=== PATIENT | female | born 1980 | race Caucasian/White ===

== ENCOUNTER 2020-02-20 13:50 | Emergency (ER) | payer OTHER ==
[~2020-02-20] VITALS: Ht 167.6 cm; Wt 108.9 kg
--- OUTSIDE RECORDS SUMMARY | ~2020-02-20 | XMS | Encounter Summary ---
Demographics + + + | Address | [address] | | | [place] [address] | + + + | Home Phone | | + + + | Preferred Language | Unknown | + + + | Marital Status | Unknown | + + + | Scientology Affiliation | Unknown | + + + | Race | White | + + + | Ethnic Group | Unknown | + + + Author + + + | Author | [facility] | | | and [place] | + + + | Organization | [facility] | | | and [place] | + + + | Address | Unknown | + + + | Phone | Unavailable | + + + Support + + +---------+ + | Name | Relationship | Address | Phone | + + +---------+ + | Known Un | ECON | Unknown | | + + +---------+ + | Estefanimariia Sims | ECON | Unknown | | + + +---------+ + Care Team Providers + +------+ + | Care Instructional Assistant Name | Role | Phone | + +------+ + PCP | Unavailable | + +------+ + Encounter Details +--------+ + + + + | Date | Type | Department | Care Team | Description | +--------+ + + + + | 11/09/ | Hospital | [facility] | Marleni Garcia, | | | 2010 | Encounter | HOSPITAL EMERGENCY | 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
--- OUTSIDE RECORDS SUMMARY | ~2020-02-20 | XMS | Encounter Summary ---
Demographics + + + | Address | [address] | | | [place] [address] | + + + | Home Phone | | + + + | Preferred Language | Unknown | + + + | Marital Status | Unknown | + + + | Taoist Affiliation | Unknown | + + + | Race | White | + + + | Ethnic Group | Unknown | + + + Author + + + | Author | [facility] | | | and [place] | + + + | Organization | [facility] | | | and [...] Team Providers + +------+ + | Care Gas Station Supervisor Name | Role | Phone | + +------+ + PCP | Unavailable | + +------+ + Encounter Details +--------+ + + + + | Date | Type | Department | Care Team | Description | +--------+ + + + + | 12/28/ | Hospital | [facility] | Quincy Landis | | | 2009 | Encounter | HOSPITAL EMERGENCY | [address] | | | | | CENTER [address] | [facility] | | | | | DR [place] [place] | [place] [address] | | | | | [address] | [phone] | | | | | [phone] | | | +--------+ + + + [...]
--- OUTSIDE RECORDS SUMMARY | ~2020-02-20 | XMS | Encounter Summary ---
Demographics + + + | Address | [address] | | | [place] [address] | + + + | Home Phone | | + + + | Preferred Language | Unknown | + + + | Marital Status | Unknown | + + + | Christianity Affiliation | Unknown | + + + | Race | White | + + + | Ethnic Group | Unknown | + + + Author + + + | Author | [facility] | | | and [place] | + + + | Organization | [facility] | | | [...] Team Providers + +------+ + | Care Shells Inspector Name | Role | Phone | + +------+ + PCP | Unavailable | + +------+ + Encounter Details +--------+ + + + + | Date | Type | Department | Care Team | Description | +--------+ + + + + | 09/04/ | Hospital | [facility] | Conversion | | | 2011 | Encounter | HOSPITAL EMERGENCY | Transaction, | | | | | CENTER [address] | Provider Unknown | | | | | [address] [place], [place] | | | | | | [address] | (Fax) | | | | | [phone] | | | +--------+ + + + [...]
--- OUTSIDE RECORDS SUMMARY | ~2020-02-20 | XMS | Encounter Summary ---
Demographics + + + | Address | [address] | | | [place] [address] | + + + | Home Phone | | + + + | Preferred Language | Unknown | + + + | Marital Status | Unknown | + + + | Jew Affiliation | Unknown | + + + [...] Team Providers + +------+ + | Care Fur Puller Name | Role | Phone | + +------+ + PCP | Unavailable | + +------+ + Encounter Details +--------+ + + + + | Date | Type | Department | Care Team | Description | +--------+ + + + + | 08/31/ | Hospital | [facility] | | | | 2009 | Encounter | HOSPITAL GENERIC OP | | | | | | CONVERSION | | | | | | DEPARTMENT [address] | | | | | | [address] | | | | | | [place] | | | | | | [address] | | | | | | [phone] | | | +--------+ + + + [...]
--- OUTSIDE RECORDS SUMMARY | ~2020-02-20 | XMS | Encounter Summary ---
Demographics + + + | Address | [address] | | | [place] [address] | + + + | Home Phone | | + + + | Preferred Language | Unknown | + + + | Marital Status | Unknown | + + + | Alevism Affiliation | Unknown | + + + | Race | White | + + + | Ethnic Group | Unknown | + + + Author + + + | Author | [facility] | | | and [place] | + + + | Organization | [facility] | | | and [...] Team Providers + +------+ + | Care Single End Sewer Name | Role | Phone | + +------+ + PCP | Unavailable | + +------+ + Encounter Details +--------+ + + + + | Date | Type | Department | Care Team | Description | +--------+ + + + + | 01/31/ | Hospital | [facility] | Timmy Garcia | | | 2008 | Encounter | HOSPITAL EMERGENC[place] | [place] [address] [facility] | | | | | CENTER [address] | [facility] [address] | | | | | [address] [place] | [place], [place] | | | | | [address] | [address] | | | | | [phone] | | | +--------+ + + + [...]
--- OUTSIDE RECORDS SUMMARY | ~2020-02-20 | XMS | Encounter Summary ---
Demographics + + + | Address | [address] | | | [place] [address] | + + + | Home Phone | | + + + | Preferred Language | Unknown | + + + | Marital Status | Unknown | + + + | Protestant Affiliation | Unknown | + + + | Race | White | + + + | Ethnic Group | Unknown | + + + Author + + + | Author | [facility] | | | and [place] | + + + | Organization | [facility] | | | and [place] | + + + | Address | Unknown | + + + | Phone | Unavailable | + + + Support + + +---------+ + | Name | Relationship | Address | Phone | + + +---------+ + | Known Un | ECON | Unknown | | + + +---------+ + | Estefani Sims | ECON | Unknown | | + + +---------+ + Care Team Providers + +------+ + | Care Poultry Farmer Meat Name | Role | Phone | + +------+ + PCP | Unavailable | + +------+ + Encounter Details +--------+ + + + + | Date | Type | Department | Care Team | Description | +--------+ + + + + | 03/09/ | Hospital | [facility] | Guy Kaba | | | 2010 | Encounter | HOSPITAL EMERGENCY | MD [address] | | | | | CENTER [address] | [facility] | | | | | DR [address] [place] | [place] [address] | | | | | [address] | [phone] | | | | | [phone] | | | +--------+ + + + [...]
--- OUTSIDE RECORDS SUMMARY | ~2020-02-20 | XMS | Clinical Summary ---
Demographics + + + | Address | [address] | | | [place] [address] | + + + | Home Phone | | + + + | Preferred Language | Unknown | + + + | Marital Status | Unknown | + + + | Catholic Affiliation | Unknown | + + + | Race | White | + + + | Ethnic Group | Unknown | + + + Author + + + | Author | [facility] | | | and [place] | + + + | Organization | [facility] | | | [...] Team Providers + +------+ + | Care Legal Coordinator Name | Role | Phone | + +------+ + | No, Unknownpcp | PCP | | + +------+ + Allergies Not on File Medications Not on file Active Problems Not on file Immunizations + + + + | Name | Administration Dates | Next Due | + + + + | TDAP, (ADOL/ADULT) | 10/03/2009 | | + + + + Social History + [...] on file | | + + + Last Filed Vital Signs Not on file Plan of Treatment + + + + + | Health Maintenance | Due Date | Last | Comments | | | | Done | | + + + + + | Cervical Cancer | | | | | Screening (Pap) | 3 | | | + + + + + | Vaccine: | | 10/04/19 | | | Dtap/Tdap/Td (2 - | 0 | 10 | | | Td) | | | | + + + + + | Vaccine: Influenza | | | | | (#1) | 0 | | | + + + + + Results Not on filefrom Last 3 Months Insurance + +--------+ +--------+ +---------+--------+ | Payer | Benefi | Subscriber | Effect | Phone | Address | Type | | | t Plan | ID | payam | | | | | | / | | Dates | | | | | | Group | | | | | | + +--------+ +--------+ +---------+--------+ | [employer] | [employer] | [id number] | | [phone] | | Medica | | MEDICAID HMO | HEALTH | | [id number] | 1 | | id | | | MDCD | | esent | | | | | | [place] | | | | | | + +--------+ +--------+ +---------+--------+ + +--------+ +--------+ + + | Guarantor Name | Accoun | Relation to | Date | Phone | Billing Address | | | t Type | Patient | of | | | | | | | | | | + +--------+ +--------+ + + | Levi-Julián Guillen | Person | Self | [birth year] | [address] | | juliet Ibrahim | vinicius/Shashank | | 1980 | [phone] | [address] [place] | | | porfirio | | | 7 (Home) | [address] | + +--------+ +--------+ + + Advance Directives + + + + + | Type | Date Recorded | Patient | Explanation | | | | Security Management Specialist | | + + + + + | Power of | | | | | Mold Finisher | | | | + + + + + | Advance | | | | | Directive | | | | + + + + +"
--- OUTSIDE RECORDS SUMMARY | ~2020-02-20 | XMS | Encounter Summary ---
Demographics + + + | Address | [address] | | | [place] [address] | + + + | Home Phone | | + + + | Preferred Language | Unknown | + + + | Marital Status | Unknown | + + + | Adventism Affiliation | Unknown | + + + | Race | White | + + + | Ethnic Group | Unknown | + + + Author + + + | Author | [facility] | | | and [place] | + + + | Organization | [facility] | | | and [...] Team Providers + +------+ + | Care Warehouse Representative Name | Role | Phone | + +------+ + PCP | Unavailable | + +------+ + Encounter Details +--------+ + + + + | Date | Type | Department | Care Team | Description | +--------+ + + + + | 10/17/ | Hospital | [facility] | Quincy Landis | | | 2010 | Encounter | HOSPITAL EMERGENCY | [address] | | | | | CENTER [address] | [facility] | | | | | DR [address] | [place] [address] | | | | | [address] | [phone] | | | | | [phone] | | | +--------+ + + + [...]
--- OUTSIDE RECORDS SUMMARY | ~2020-02-20 | XMS | Encounter Summary ---
Demographics + + + | Address | [address] | | | [place] [address] | + + + | Home Phone | | + + + | Preferred Language | Unknown | + + + | Marital Status | Unknown | + + + | Denominational Affiliation | Unknown | + + + | Race | White | + + + | Ethnic Group | Unknown | + + + Author + + + | Author | [facility] | | | and [place] | + + + | Organization | [facility] | | | and [...] Team Providers + +------+ + | Care Armature Winder Name | Role | Phone | + +------+ + PCP | Unavailable | + +------+ + Encounter Details +--------+ + + + + | Date | Type | Department | Care Team | Description | +--------+ + + + + | 11/11/ | Hospital | [facility] | Conversion | | | 2011 | Encounter | HOSPITAL EMERGENCY | Transaction, | | | | | CENTER [address] | Provider Unknown | | | | | [address] [place], [place] | | | | | | [address] | (Fax) | | | | | [phone] | | | +--------+ + + + [...]
--- OUTSIDE RECORDS SUMMARY | ~2020-02-20 | XMS | Encounter Summary ---
Demographics + + + | Address | [address] | | | [place] [address] | + + + | Home Phone | | + + + | Preferred Language | Unknown | + + + | Marital Status | Unknown | + + + | Roman Catholic Affiliation | Unknown | + + + | Race | White | + + + | Ethnic Group | Unknown | + + + Author + + + | Author | [facility] | | | and [place] | + + + | Organization | [facility] | | | [...] Team Providers + +------+ + | Care Chemical Process Operator Name | Role | Phone | + +------+ + PCP | Unavailable | + +------+ + Encounter Details +--------+ + + + + | Date | Type | Department | Care Team | Description | +--------+ + + + + | 06/14/ | Hospital | [facility] | Gregory Figueroa | | | 2008 | Encounter | HOSPITAL EMERGENCY | [address] | | | | | CENTER [address] | [address] | | | | | DR [place], [place] | [place] [address] | | | | | [address] | [phone] | | | | | [phone] | | | +--------+ + + + [...]
--- OUTSIDE RECORDS SUMMARY | ~2020-02-20 | XMS | Encounter Summary ---
Demographics + + + | Address | [address] | | | [place] [address] | + + + | Home Phone | | + + + | Preferred Language | Unknown | + + + | Marital Status | Unknown | + + + | Anglican Affiliation | Unknown | + + + | Race | White | + + + | Ethnic Group | Unknown | + + + Author + + + | Author | [facility] | | | and [place] | + + + | Organization | [facility] | | [...] Team Providers + +------+ + | Care Business Office Technology Instructor Name | Role | Phone | + +------+ + PCP | Unavailable | + +------+ + Encounter Details +--------+ + + + + | Date | Type | Department | Care Team | Description | +--------+ + + + + | 08/30/ | Hospital | [facility] | | | | 2009 | Encounter | HOSPITAL GENERIC OP | | | | | | CONVERSION | | | | | | DEPARTMENT [address] | | | | | | [address] | | | | | | [place] | | | | | | [address] | | | | | | [phone] | | | +--------+ + + + [...]
--- OUTSIDE RECORDS SUMMARY | ~2020-02-20 | XMS | Encounter Summary ---
Demographics + + + | Address | [address] | | | [place] [address] | + + + | Home Phone | | + + + | Preferred Language | Unknown | + + + | Marital Status | Unknown | + + + | Scientology Affiliation | Unknown | + + + | Race | White | + + + | Ethnic Group | Unknown | + + + Author + + + | Author | [facility] | | | and [place] | + + + | Organization | [facility] | | | [...] Team Providers + +------+ + | Care Marketing Writer Name | Role | Phone | + +------+ + PCP | Unavailable | + +------+ + Encounter Details +--------+ + + + + | Date | Type | Department | Care Team | Description | +--------+ + + + + | 10/04/ | Hospital | [facility] | Yovany Sher | | | 2008 | Encounter | HOSPITAL LABORATORY | MD [address] | | | | | [address] | [address] | | | | | [place], [place] | [place] [address] | | | | | [address] | [phone] | | | | | [phone] | | | +--------+ + + + [...]
--- OUTSIDE RECORDS SUMMARY | ~2020-02-20 | XMS | Encounter Summary ---
Demographics + + + | Address | [address] | | | [place] [address] | + + + | Home Phone | | + + + | Preferred Language | Unknown | + + + | Marital Status | Unknown | + + + | Pentecostal Affiliation | Unknown | + + + | Race | White | + + + | Ethnic Group | Unknown | + + + Author + + + | Author | [facility] | | | and [place] | + + + | Organization | [facility] | | | [...] Team Providers + +------+ + | Care Medical Detail Representative Name | Role | Phone | + +------+ + PCP | Unavailable | + +------+ + Encounter Details +--------+ + + + + | Date | Type | Department | Care Team | Description | +--------+ + + + + | 08/23/ | Hospital | [facility] | Timmy Garcia | | | 2008 | Encounter | HOSPITAL EMERG[place] [address] [facility] | | | | | CENTER [address] | [facility] [address] | | | | | [address] [place] | [place], [place] | | | | | [address] | [address] | | | | | [phone] | | | +--------+ + + + [...]
--- OUTSIDE RECORDS SUMMARY | ~2020-02-20 | XMS | Encounter Summary ---
Demographics + + + | Address | [address] | | | [place] [address] | + + + | Home Phone | | + + + | Preferred Language | Unknown | + + + | Marital Status | Unknown | + + + | Moravian Affiliation | Unknown | + + + | Race | White | + + + | Ethnic Group | Unknown | + + + Author + + + | Author | [facility] | | | and [place] | + + + | Organization | [facility] | | | [...] Team Providers + +------+ + | Care Oncology Physician Assistant Name | Role | Phone | + +------+ + PCP | Unavailable | + +------+ + Encounter Details +--------+ + + + + | Date | Type | Department | Care Team | Description | +--------+ + + + + | 10/10/ | Hospital | [facility] | Yovany Sher | | | 2008 | Encounter | HOSPITAL MED SURG | [address] | | | | | [address] [place] | [address] | | | | | [place], [place] | [place] [address] | | | | | [address] | [phone] | | | | | [phone] | | | +--------+ + + + [...]
--- OUTSIDE RECORDS SUMMARY | ~2020-02-20 | XMS | Encounter Summary ---
Demographics + + + | Address | [address] | | | [place] [address] | + + + | Home Phone | | + + + | Preferred Language | Unknown | + + + | Marital Status | Unknown | + + + | Anglican Affiliation | Unknown | + + + | Race | White | + + + | Ethnic Group | Unknown | + + + Author + + + | Author | [facility] | | | and [place] | + + + | Organization | [facility] | | | [...] Team Providers + +------+ + | Care Reproductive Endocrinologist Name | Role | Phone | + +------+ + PCP | Unavailable | + +------+ + Encounter Details +--------+ + + + + | Date | Type | Department | Care Team | Description | +--------+ + + + + | 10/03/ | Hospital | [facility] | Chico Zimmer | | | 2009 | Encounter | HOSPITAL REGIONAL | [address] | | | | | [facility] [address] [place], | | | | | [address] [facility], | [place] [address] | | | | | [place] [address] | [phone] | | | | | [phone] | | | +--------+ + + + [...]
--- OUTSIDE RECORDS SUMMARY | ~2020-02-20 | XMS | Encounter Summary ---
Demographics + + + | Address | [address] | | | [place] [address] | + + + | Home Phone | | + + + | Preferred Language | Unknown | + + + | Marital Status | Unknown | + + + | Islam Affiliation | Unknown | + + + | Race | White | + + + | Ethnic Group | Unknown | + + + Author + + + | Author | [facility] | | | and [place] | + + + | Organization | [facility] | | | and [...] Team Providers + +------+ + | Care Construction Manager Name | Role | Phone | + +------+ + PCP | Unavailable | + +------+ + Encounter Details +--------+ + + + + | Date | Type | Department | Care Team | Description | +--------+ + + + + | 05/09/ | Hospital | [facility] | Guy Kaba | | | 2008 | Encounter | HOSPITAL EMERGENCY | [address] | | | | | C[address] | [facility] | | | | | DR [address] [place] | [place] [address] | | | | | [address] | [phone] | | | | | [phone] | | | +--------+ + + + [...]
--- OUTSIDE RECORDS SUMMARY | ~2020-02-20 | XMS | Encounter Summary ---
Demographics + + + | Address | [address] | | | [place] [address] | + + + | Home Phone | | + + + | Preferred Language | Unknown | + + + | Marital Status | Unknown | + + + | Uatsdin Affiliation | Unknown | + + + | Race | White | + + + | Ethnic Group | Unknown | + + + Author + + + | Author | [facility] | | | and [place] | + + + | Organization | [facility] | | | and [...] Team Providers + +------+ + | Care Account Maintenance Representative Name | Role | Phone | + +------+ + PCP | Unavailable | + +------+ + Encounter Details +--------+ + + + + | Date | Type | Department | Care Team | Description | +--------+ + + + + | 10/12/ | Hospital | [facility] | Melita Chris | | | 2008 | Encounter | HOSPITAL XRAY 900 | MD [address] | | | | | [place] | [place] | | | | | [place] | [address] | | | | | [address] | [phone] | | | | | [phone] | | | +--------+ + + + [...]
--- OUTSIDE RECORDS SUMMARY | ~2020-02-20 | XMS | Encounter Summary ---
Demographics + + + | Address | [address] | | | [place] [address] | + + + | Home Phone | | + + + | Preferred Language | Unknown | + + + | Marital Status | Unknown | + + + | Islam Affiliation | Unknown | + + + | Race | White | + + + | Ethnic Group | Unknown | + + + Author + + + | Author | [facility] | | | and [place] | + + + | Organization | [facility] | | | and [place] | + + + | Address | Unknown | + + + | Phone | Unavailable | + + + Support + + +---------+ + | Name | Relationship | Address | Phone | + + +---------+ + | Known Un | ECON | Unknown | | + + +---------+ + | Estefanimariia Sism | ECON | Unknown | | + + +---------+ + Care Team Providers + +------+ + | Care General Intern Name | Role | Phone | + +------+ + PCP | Unavailable | + +------+ + Encounter Details +--------+ + + + + | Date | Type | Department | Care Team | Description | +--------+ + + + + | 07/03/ | Hospital | [facility] | Yovany Sher | | | 2009 | Encounter | HOSPITAL LABORATORY | [address] | | | | | [address] [place] | [address] | | | | | [place], [place] | [place] [address] | | | | | [address] | [phone] | | | | | [phone] | | | +--------+ + + + [...]
--- OUTSIDE RECORDS SUMMARY | ~2020-02-20 | XMS | Encounter Summary ---
Demographics + + + | Address | [address] | | | [place] [address] | + + + | Home Phone | | + + + | Preferred Language | Unknown | + + + | Marital Status | Unknown | + + + | Adventist Affiliation | Unknown | + + + | Race | White | + + + | Ethnic Group | Unknown | + + + Author + + + | Author | [facility] | | | and [place] | + + + | Organization | [facility] | | | [...] Team Providers + +------+ + | Care Surveying Technician Name | Role | Phone | + +------+ + PCP | Unavailable | + +------+ + Encounter Details +--------+ + + + + | Date | Type | Department | Care Team | Description | +--------+ + + + + | 04/16/ | Hospital | [facility] | Gregory Figueroa | | | 2009 | Encounter | HOSPITAL EMERGENCY | [address] | | | | | C[address] | [address] | | | | | DR [place], [place] | [place] [address] | | | | | [address] | [phone] | | | | | [phone] | | | +--------+ + + + [...]
--- OUTSIDE RECORDS SUMMARY | ~2020-02-20 | XMS | Encounter Summary ---
Demographics + + + | Address | [address] | | | [place] [address] | + + + | Home Phone | | + + + | Preferred Language | Unknown | + + + | Marital Status | Unknown | + + + | Rastafari Affiliation | Unknown | + + + | Race | White | + + + | Ethnic Group | Unknown | + + + Author + + + | Author | [facility] | | | and [place] | + + + | Organization | [facility] | | | [...] Team Providers + +------+ + | Care Manager Of Training Name | Role | Phone | + +------+ + PCP | Unavailable | + +------+ + Encounter Details +--------+ + + + + | Date | Type | Department | Care Team | Description | +--------+ + + + + | 08/09/ | Hospital | [facility] | Quincy Landis | | | 2009 | Encounter | HOSPITAL EMERGENCY | [address] | | | | | C[address] | [facility] | | | | | DR [address] [place] | [place] [address] | | | | | [address] | [phone] | | | | | [phone] | | | +--------+ + + + [...]
--- OUTSIDE RECORDS SUMMARY | ~2020-02-20 | XMS | Encounter Summary ---
Demographics + + + | Address | [address] | | | [place] [address] | + + + | Home Phone | | + + + | Preferred Language | Unknown | + + + | Marital Status | Unknown | + + + | Samaritan Affiliation | Unknown | + + + | Race | White | + + + | Ethnic Group | Unknown | + + + Author + + + | Author | [facility] | | | and [place] | + + + | Organization | [facility] | | [...] Team Providers + +------+ + | Care Railroad Maintenance Clerk Name | Role | Phone | + +------+ + PCP | Unavailable | + +------+ + Encounter Details +--------+ + + + + | Date | Type | Department | Care Team | Description | +--------+ + + + + | 02/20/ | Hospital | [facility] | Christiano Coffey FNP | | | 2009 | Encounter | H[facility]PITAL XRAY 900 | [address] | | | | | [address] | [address], | | | | | [place], [place] | [place] [address] | | | | | [address] | [phone] | | | | | [phone] | | | +--------+ + + + [...]
--- OUTSIDE RECORDS SUMMARY | ~2020-02-20 | XMS | Encounter Summary ---
Demographics + + + | Address | [address] | | | [place] [address] | + + + | Home Phone | | + + + | Preferred Language | Unknown | + + + | Marital Status | Unknown | + + + | Worship Affiliation | Unknown | + + + | Race | White | + + + | Ethnic Group | Unknown | + + + Author + + + | Author | [facility] | | | and [place] | + + + | Organization | [facility] | | [...] Team Providers + +------+ + | Care Cylinder Press Feeder Name | Role | Phone | + +------+ + PCP | Unavailable | + +------+ + Encounter Details +--------+ + + + + | Date | Type | Department | Care Team | Description | +--------+ + + + + | 12/23/ | Hospital | [facility] | Gregory Figueroa | | | 2008 | Encounter | HOSPITAL EMERGENCY | [address] | | | | | [address] | [address] | | | | | [address] [place], [place] | [place] [address] | | | | | [address] | [phone] | | | | | [phone] | | | +--------+ + + + [...]
--- OUTSIDE RECORDS SUMMARY | ~2020-02-20 | XMS | Encounter Summary ---
Demographics + + + | Address | [address] | | | [place] [address] | + + + | Home Phone | | + + + | Preferred Language | Unknown | + + + | Marital Status | Unknown | + + + | Gnosticist Affiliation | Unknown | + + + [...] Team Providers + +------+ + | Care Elementary Substitute Teacher Name | Role | Phone | + +------+ + PCP | Unavailable | + +------+ + Encounter Details +--------+ + + + + | Date | Type | Department | Care Team | Description | +--------+ + + + + | 06/18/ | Hospital | [facility] | Timmy Garcia | | | 2008 | Encounter | HOSPITAL EMERGENC[place] | [place] [address] [facility] | | | | | [address] | [facility] [address] | | | | | [address] [place] | [place], [place] | | | | | [address] | [address] | | | | | [phone] | | | +--------+ + + + [...]
--- OUTSIDE RECORDS SUMMARY | ~2020-02-20 | XMS | Encounter Summary ---
Demographics + + + | Address | [address] | | | [place] [address] | + + + | Home Phone | | + + + | Preferred Language | Unknown | + + + | Marital Status | Unknown | + + + | Shinto Affiliation | Unknown | + + + [...] Team Providers + +------+ + | Care Drafter Geological Name | Role | Phone | + +------+ + PCP | Unavailable | + +------+ + Encounter Details +--------+ + + + + | Date | Type | Department | Care Team | Description | +--------+ + + + + | 12/06/ | Hospital | [facility] | Mounika Bai | | | 2009 | Encounter | HOSPITAL XRAY [address] | [address] | | | | | [address] | [facility] | | | | | [place] | [place] [address] | | | | | [address] | [phone] | | | | | [phone] | | | +--------+ + + + [...]
[~2020-02-20 13:50] MED LIST: GABAPENTIN300 MG PO; MOTRIN IB200 MG PO; NEXIUM20 MG PO; PERCOCET 5-3251 EACH PO; ZOLOFT100 MG PO
[2020-02-20] MEDS ORDERED: ALBUTEROL2.5 MG/3 M INH (14:07)
[2020-02-20] MEDS ORDERED: PREDNISONE20 MG PO (15:01)
== END 2020-02-20 15:21 | disposition home or self-care (01) ==
LOC: ED 13:50
DX: J45.901 Unspecified asthma with (acute) exacerbation (principal); Z87.891 Personal history of nicotine dependence; Z88.2 Allergy status to sulfonamides; Z88.1 Allergy status to other antibiotic agents; Z79.899 Other long term (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
CPT/HCPCS: 71045; 80053; 83735; 84484; 85025; 99285-25; J7512

== ENCOUNTER 2020-05-14 14:24 | Emergency (ER) | payer OTHER ==
[~2020-05-14] VITALS: Ht 167.6 cm; Wt 108.9 kg
[~2020-05-14 14:24] MED LIST changes: +ALBUTEROL2.5 MG/3 M INH; +PREDNISONE20 MG PO
[2020-05-14] MEDS ORDERED: TRAMADOL HCL50 MG PO (14:55)
[2020-05-14] MEDS ORDERED: CEFDINIR300 MG PO (14:56)
[2020-05-15] MEDS ORDERED: CLARITHROMYCIN500 MG PO (15:02)
[2020-05-15] MEDS ORDERED: ADVAIR HFA 45-212 GM (15:04)
[2020-05-15] MEDS ORDERED: NORCO 7.5-3251 EACH PO (17:50)
== END 2020-05-14 16:50 | disposition home or self-care (01) ==
LOC: ED 14:24
DX: M54.5 Low back pain (principal); Z87.891 Personal history of nicotine dependence; Z88.1 Allergy status to other antibiotic agents; Z88.2 Allergy status to sulfonamides; Z88.0 Allergy status to penicillin; Z79.899 Other long term (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; Z79.891 Long term (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 of opiate analgesic
CPT/HCPCS: 74176; 81001; 84703; 99284-25

== ENCOUNTER 2020-05-15 14:42 | Emergency (ER) | payer OTHER ==
[~2020-05-15] VITALS: Ht 167.6 cm; Wt 108.9 kg
[~2020-05-15 14:42] MED LIST changes: +CEFDINIR300 MG PO; +TRAMADOL HCL50 MG PO
[2020-05-15] MEDS ORDERED: CLARITHROMYCIN500 MG PO (15:02)
[2020-05-15] MEDS ORDERED: ADVAIR HFA 45-212 GM (15:04)
--- OUTSIDE RECORDS SUMMARY | 2020-05-15 15:08 | XMS ---
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 Marcel has no Care Guidelines for this patient. Jessica VISIT COUNT (12 MO.) [address] [facility] TOTAL 3 NOTE: Visits indicate total known visits. ED/C VISIT TRACKING (12 MO.) 05/15/2020 14:43 [facility] [place] TYPE: Emergency COMPLAINT: - FLANK PAIN 05/14/2020 14:25 [facility] [place] TYPE: Emergency COMPLAINT: - URINE PROBLEM 02/20/2020 13:50 [facility] [place] TYPE: Emergency COMPLAINT: - SOB DIAGNOSES: - Personal history of nicotine dependence - Shortness of breath - Other retirement (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 - Allergy status to sulfonamides - Allergy status to other antibiotic agents - Unspecified asthma with (acute) exacerbation INPATIENT VISIT TRACKING (12 MO.) No inpatient visits to display in this time frame [email or web address]
[2020-05-15] MEDS ORDERED: NORCO 7.5-3251 EACH PO (17:50)
== END 2020-05-15 18:00 | disposition home or self-care (01) ==
LOC: ED 14:42
DX: N39.0 Urinary tract infection, site not specified (principal); Z87.891 Personal history of nicotine dependence; Z88.1 Allergy status to other antibiotic agents; Z88.2 Allergy status to sulfonamides; Z88.0 Allergy status to penicillin; Z79.891 Long term (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 of opiate analgesic; Z79.899 Other long term (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
CPT/HCPCS: 80053; 85025; 96374; 96375; 96376; 99283-25; J1170; J1335; J2405; J7030

== ENCOUNTER 2020-11-01 08:00 | Day surgery (SDC) | payer OTHER ==
[~2020-11-01] VITALS: Ht 167.6 cm; Wt 102.3 kg
--- NOTE | ~2020-11-01 | OR ---
[facility] [address] [place], [place] [address] Draft DATE OF OPERATION: 11/01/2020 SURGEON: Maximo Winston MD PREOPERATIVE DIAGNOSES: Chronic pansinusitis with polyposis and scarring, previous surgery which was unsuccessful. POSTOPERATIVE DIAGNOSES: Chronic pansinusitis with polyposis and scarring, previous surgery which was unsuccessful. PROCEDURE: 1. Bilateral endoscopic frontal ethmoidectomy, 94711. 2. Bilateral maxillary antrostomies with removal of tissue, 07872-57. 3. Bilateral endoscopic sphenoidotomies, 83435-35. 4. Left submucous resection of inferior turbinate, 71272. INDICATIONS: This 39-year-old female had sinus surgery last year elsewhere and her benefit was very limited as the patient had all of the same symptoms come back, congestion, headache, recurring acute infection when the CT scan was performed, which showed basically picture of pansinusitis almost white-out. Endoscopic exam was not possible because of intense scarring, could not get through all of the scar bands. Because of medical failure and even a previous surgical failure to treat her disease, the above revision was indicated. Nasal obstruction. PROCEDURE IN DETAIL: The patient was placed in the supine position, had an orotracheal intubation, was placed under general anesthesia. Photographs were obtained preop, intraop and postoperatively. Beginning on the patient's right side, the lateral nasal wall, uncinate process were injected with a couple mL of 1% lidocaine 1:100,000 epinephrine. After cutting the scar bands with a thru cut ethmoid punch, the microdebrider was used to remove polyps to try and help clarify this situation. There was a part of the stalk of the middle turbinate, which had been previously penetrated. Once that anatomy was figured out, then the dissection stayed lateral to that turbinate. There was dense scarring, which completely closed off, the maxillary sinus and the uncinate process either unremoved or only partially removed. This was removed with backbiting forceps, microdebrider and a thru cut ethmoid punch. Once the maxillary sinus was visualized, then polyps were removed with the microdebrider with a curved blade, backbiting forceps with a long upbiting PATIENT NAME: FROILAN PAEZ OPERATIVE REPORT DATE OF : 84 REPORT #: [id number] PHYSICIAN: MAXIMO WINSTON MD PCP: DONNIE CARDENAS PA-C REPORT IS CONFIDENTIAL AND NOT TO BE RELEASED WITHOUT AUTHORIZATION [facility] [address] [place], [place] [address] Draft forceps. The 70-degree scope used with a frontal sinus sagittally closing forceps and removed all of the polypoid tissue out of that maxillary sinus. Complete ethmoidectomy was done. There were lots of ethmoid scarred intersinus septations, these were everywhere, both posterior and anterior, and they were removed as flush as possible, 1st going back to the sphenoid sinus area. Sphenoid sinus was scarred off, it was re-opened with the thru cut ethmoid punch and the Kerrison forceps. Purulence was noted in the sphenoid sinus, that was a very large sinus with an accessory sinus, and dissection was not possible down in there, but opening up the ostium just as wide as possible both with Kerrison forceps, cutting down which also as expected opened up part of the one of the branch of the sphenoid ethmoid arteries. This was cauterized from making the ostium as big as possible. Then it was rinsed out with 20 mL of saline, gently irrigating that, and suctioning it out. Switching to a 70-degree scope, then the dissection went along the base of skull up into the frontal recess. The frontal sinus was hard to visualize, lots of polyps and ethmoid architecture still remained. The patient had a very narrow approach as well, so between blood on the lens and suctioning out, progress was slow. Finally, the frontal sinus was opened. Frontal sinus instruments and suction could be well placed up into it. It was very edematous and care was taken not to strip the mucosa out of the opening of that frontal sinus. NasoPore with mupirocin ointment was placed on that side and the same thing was done on the left side, injecting a couple of mL only of lidocaine into the scarred area in the lateral wall. The uncinate process was almost entirely present on the left side, scarred down. It was opened up again with backbiting forceps. The uncinate process entirely removed following up into the frontal recess to try and remove all of the little pieces. Again, polyps were removed out of the maxillary sinus. Pus was also present in the maxillary sinus. It was rinsed out after opening up thoroughly, taking down as much of the wall posteriorly and superiorly and inferiorly as possible down to the inferior turbinates. Still with the patient's nasal airway so narrow, even with a straight septum, the turbinate was reduced on that side to try and give her better airway. This was done with a stab incision anteriorly lifting up the mucoperiosteum and then fracturing and taking out the stalk of the inferior turbinate, which gave her more space, lateralizing that inferior turbinate. Complete ethmoidectomy was then done. Transostial sphenoidotomy was performed. Scar tissue removed again using Kerrison forceps, cutting down into the bone and opening up as large as possible that sphenoid sinus. No pus was present in that one and it was probably only a 10th of the size of the right sphenoid sinus. The 70-degree scope was then used to dissect out the base of skull opening up the frontal sinus on that side. Again, lots of scar, lots of ethmoid architecture and polyps carefully removed. The frontal sinus was opened a little better on that side, could be visualized better than the right side. Estimated blood loss from procedure was about 300 mL. There were no complications. NasoPore was placed in there to try and help prevention of recurrence of those scar bands. The patient went to Recovery in good condition. PATIENT NAME: RFOILAN PAEZ OPERATIVE REPORT DATE OF : 84 REPORT #: [id number] PHYSICIAN: MAXIMO WINSTON MD PCP: DONNIE CARDENAS PA-C REPORT IS CONFIDENTIAL AND NOT TO BE RELEASED WITHOUT AUTHORIZATION [facility] [address] [place] [address] Draft Maximo Winston MD SLN/MODL /[id number] Copies: ~ PATIENT NAME: FROILAN PAEZ OPERATIVE REPORT DATE OF : 84 REPORT #: [id number] PHYSICIAN: MAXIMO WINSTON MD PCP: DONNIE CARDENAS PA-C REPORT IS CONFIDENTIAL AND NOT TO BE RELEASED WITHOUT AUTHORIZATION
[~2020-11-01 08:00] MED LIST changes: +ADVAIR HFA 45-212 GM; +ALLEGRA ALLERG180 MG PO; +CLARITHROMYCIN500 MG PO; +NORCO 7.5-3251 EACH PO
[2020-11-01] MEDS ORDERED: CLARITIN10 M1 PO (08:26)
[2020-11-01] MEDS ORDERED: FLOVENT HFA12 GM INH (08:28)
[2020-11-01] MEDS ORDERED: OMEPRAZOLE20 MG PO (08:29)
--- NOTE | 2020-11-01 09:37 | NUR ---
11/01/20 0937 Herlinda Styles 0931: PT ARRIVES TO PACU FOR RECOVERY VIA STRETCHER. RESPONDS TO VERBAL STIMULI. VSS, O2 SATS >98% ON 6L VIA FACEMASK. GAUZE AND TAPE PLACED OVER NARES.
--- NOTE | 2020-11-01 15:12 | NUR ---
1450: PATIENT BACK IN DAY SURGERY ROOM FROM PACU. RATES PAIN 4/10. DENIES NAUSEA. VS CHECKED. MOUSTACHE DRESSING IN PLACE WITH SMALL AMOUNT OF RED DRAINAGE. SCDs IN PLACE. PATIENT GIVEN ICE WATER, JELLO, AND SODA. CALL LIGHT WITHIN REACH. 1505: PATIENT TOLERATED JELLO. PATIENT GIVEN 1 TAB OF TRAMADOL FOR PAIN. CALL LIGHT WITHIN REACH.
[2020-11-01] MEDS ORDERED: ULTRAM50 MG PO (15:29)
--- NOTE | 2020-11-01 16:35 | NUR ---
1600: VS CHECKED. PATIENT ASSISTED OOB AND TO BATHROOM. GAIT STEADY. VOID WITHOUT DIFFICULTY. GAIT STEADY BACK TO ROOM. PATIENT GETTING DRESSED INDEPENDENTLY. 1630: DISCHARGE INSTRUCTIONS GIVEN TO PATIENT. MOUSTACHE DRESSING CHANGED. PATIENT EDUCATED ON HOW TO CHANGE MOUSTACHE DRESSING. PATIENT DISCHARGED TO HOME WITH BOYFRIEND VIA WHEELCHAIR.
== END 2020-11-01 16:31 | disposition home or self-care (01) ==
LOC: OPS 08:00 → DS 08:00 → OPS 16:31
PROVIDERS: ATTEND Otolaryngology
PROC: 09CW4ZZ Extirpation of Matter from Right Sphenoid Sinus, Percutaneous Endoscopic Approach (ICD-10-PCS; 2020-11-01)
PROC: 09TL4ZZ Resection of Nasal Turbinate, Percutaneous Endoscopic Approach (ICD-10-PCS; 2020-11-01)
PROC: 09CX4ZZ Extirpation of Matter from Left Sphenoid Sinus, Percutaneous Endoscopic Approach (ICD-10-PCS; principal; 2020-11-01 08:45)
DX: J32.4 Chronic pansinusitis (principal); J33.8 Other polyp of sinus; J45.909 Unspecified asthma, uncomplicated; K21.9 Gastro-esophageal reflux disease without esophagitis; F17.290 Nicotine dependence, other tobacco product, uncomplicated; Z86.16 Personal history of COVID-19; Z88.0 Allergy status to penicillin; Z88.2 Allergy status to sulfonamides
CPT/HCPCS: 00160; J0131; J0330; J1100; J2405; J2704; J3010; J7030; J7121

== ENCOUNTER 2020-12-07 06:10 | Day surgery (SDC) | payer OTHER ==
[~2020-12-07] VITALS: Ht 167.6 cm; Wt 104.5 kg
[~2020-12-07 06:10] MED LIST changes: +CLARITIN10 M1 PO; +FLOVENT HFA12 GM INH; +OMEPRAZOLE20 MG PO; +ULTRAM50 MG PO
--- NOTE | 2020-12-07 09:02 | NUR ---
12/07/20 0902 Lolita,Heidy 0872 PT ARRIVED TO PACU ON 15L VIA MASK, NON-REBREATHER PLACED AT 15L DUE TO LOW 02 SAT. PT NONAROUSABLE TO JAW THRUST/PAINFUL STIMULI. BILATERAL WHEEZE NOTED WITH AUSCULTATION. SECOND RN AT BEDSIDE WITH DIRECTOR OF EPIDEMIOLOGY AND THIS RN. 0820 BREAHTING TREATMENT STARTED PER DIRECTOR OF EPIDEMIOLOGY. O2 MASK DECREASED TO 6L WITH BREATHING TREATMENT. PT REACTIVE AND MAINTAINING OWN AIRWAY AND DEEP BREATHING ON COMMAND. 0850 PT DENIES PAIN AND NAUSEA. PT MORE AWAKE AND SIMPLE MASK AT 6L IN PLACE AFTER FINISHING BREATHING TREATMENT. WHEEZE CLEARED ON AUSCULTATION.
--- NOTE | 2020-12-07 09:33 | NUR ---
92 PT BACK TO ROOM FROM PACU ALERT AND AWAKE, PT TAKING SIPS OF WATER TOLERATES WELL, CALLED DR SONA RIVERO HE SAID TO FOR PT NOT TAKE ZPACK AND TO START LEVAQUIN INSTEAD, THIS IS WRITTEN IN PTS DISCHARGE ORDERS AND I TOLD PT SHE VOICED UNDERSTANDING.
--- NOTE | 2020-12-07 10:20 | NUR ---
1000 PT UP TO THE BATHROOM WITHOUT ASSIST SHE WAS ABLE TO VOID, SHE HAD ALREADY WET THE BED A SMALL AMOUNT. SHE WANTED TO GET DRESSED AND WAIT FOR HER BOYFRIEND TO PICK HER UP. DISCHARGE INSTRUCTION GIVEN TO PT SHE VOICED UNDERSTANDING.
--- NOTE | 2020-12-13 09:54 | OR ---
[facility] [address] [place], [place] [address] Signed DATE OF OPERATION: 12/07/2020 SURGEON: Amauri Woods MD PREOPERATIVE DIAGNOSIS: Post sinus surgery, scarring, turbinate hypertrophy with nasal obstruction. POSTOPERATIVE DIAGNOSIS: Post sinus surgery, scarring, turbinate hypertrophy with nasal obstruction. PROCEDURES: 1. Submucous resection of right inferior turbinates, 84456. 2. Endoscopic debridement of the sinuses. INDICATIONS: This 39-year-old female had two sinus surgeries before, all this was resumption of pansinusitis with scarring. The patient was endoscoped in the office two weeks after surgery and debrided at that time as the best one could, however, the patient has continued to scar in her absolute intolerance of endoscopic procedures in the office prompted this exam under anesthesia, debridement of the sinuses and also she had submucous resection of the left inferior turbinate and that is now her only airway because of such narrowness of her nasal cavity. The right inferior turbinates needed to be reduced, so the patient had an airway on both sides, this also facilitated endoscopic exams because of the narrowness of the nose. DESCRIPTION OF PROCEDURE: The patient was placed in the supine position, had an induction general anesthesia by laryngeal mask. Photographs were taken preoperatively showing degree of scarring, also general untidiness with sinus cavities with old brown secretions and thick inspissated secretions found. The entire surgical field was re-established basically with suction with pediatric Demetri forceps with Kerrison forceps and a Thru-Cut ethmoid punch. More bone was removed posteriorly in the sphenoethmoid recess to try and lower that to try and diminish the cicatrization and fishmouthing of the sphenoid sinusotomy. Gross edematous tissues in the frontal recess with some scarring, this was plumbed with upward directed suction cautery and reestablish drainage into the frontal sinus. Maxillary sinus was cleaned out of old inspissated dark yellow and brown secretions. On the right side, there was some acute purulence found in the sphenoid sinus as it was cleaned out and a little more bone removed to try and make that as wide as possible for drainage. The right maxillary sinus was filled up with debris, some from the original surgery a month ago that was all cleaned out. Backbiting forceps was used to open that up a Electronically Signed By: AMAURI WOODS MD 12/13/20 0954 PATIENT NAME: FROILAN PAEZ OPERATIVE REPORT DATE OF : 84 REPORT #: [id number] PHYSICIAN: AMAURI WOODS MD PCP: DONNIE CARDENAS PA-C REPORT IS CONFIDENTIAL AND NOT TO BE RELEASED WITHOUT AUTHORIZATION [facility] [address], [place] [address] Signed little better on the anterior surface. Again, these nasofrontal duct plumbed with the upward direction suctions, a little bit of the edematous tissue removed and more scarring anterior to that was cut going into the sinus labyrinth between the remnant of the middle turbinate and lateral nasal wall. The right inferior turbinate was reduced, submucous resection done after injecting with 1 mL of lidocaine. Stab incision was made and endoscopically guided removal of that turbinate bone, especially the stalk buttress anteriorly, which really helped to widen the nasal airway anteriorly. No mucosa was removed from the turbinate bone only and then, a little bit of nasal pore placed between the remnant of the middle turbinates in the posterior ethmoid labyrinth, which had been scarred laterally and that was put in there to help prevent it, also a little piece of nasal pore was placed deep in the sphenoethmoid recess on the left side. The patient was then awakened and sent to recovery in good condition. ESTIMATED BLOOD LOSS: About 30 or 40 mL. She will be followed more closely in the clinic to try to prevent any scarring from recurring. Amauri Woods MD [facility] /[id number] Copies: ~ Electronically Signed By: AMAURI WOODS MD 12/13/20 0954 PATIENT NAME: FROILAN PAEZ OPERATIVE REPORT DATE OF : 84 REPORT #: [id number] PHYSICIAN: AMAURI WOODS MD PCP: DONNIE CARDENAS PA-C REPORT IS CONFIDENTIAL AND NOT TO BE RELEASED WITHOUT AUTHORIZATION
== END 2020-12-07 10:15 | disposition home or self-care (01) ==
LOC: DS 06:10 → OPS 06:10 → DS 07:30 → OPS 07:30
PROVIDERS: ATTEND Otolaryngology
PROC: 09BW8ZZ Excision of Right Sphenoid Sinus, Via Natural or Artificial Opening Endoscopic (ICD-10-PCS; 2020-12-07)
PROC: 09TL0ZZ Resection of Nasal Turbinate, Open Approach (ICD-10-PCS; principal; 2020-12-07 06:45)
DX: J34.3 Hypertrophy of nasal turbinates (principal); J34.89 Other specified disorders of nose and nasal sinuses; J95.89 Other postprocedural complications and disorders of respiratory system, not elsewhere classified; J32.4 Chronic pansinusitis; J01.90 Acute sinusitis, unspecified; J45.909 Unspecified asthma, uncomplicated; K21.9 Gastro-esophageal reflux disease without esophagitis; F41.0 Panic disorder [episodic paroxysmal anxiety]; E66.01 Morbid (severe) obesity due to excess calories; Y83.8 Other surgical procedures as the cause of abnormal reaction of the patient, or of later complication, without mention of misadventure at the time of the procedure; Z88.0 Allergy status to penicillin; Z88.2 Allergy status to sulfonamides; Z88.8 Allergy status to other drugs, medicaments and biological substances; Z87.891 Personal history of nicotine dependence; Z68.38 Body mass index [BMI] 38.0-38.9, adult
CPT/HCPCS: 00160; J0330; J1100; J1885; J2250; J2405; J2704; J2765; J3010; J3490; J7121

== ENCOUNTER 2021-06-29 08:06 | Emergency (ER) | payer OTHER ==
[~2021-06-29] VITALS: Ht 167.6 cm; Wt 104.3 kg
--- OUTSIDE RECORDS SUMMARY | 2021-06-29 08:10 | XMS ---
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 aMrcel has no Care Guidelines for this patient. Jessica VISIT COUNT (12 MO.) 1 [facility] TOTAL 1 NOTE: Visits indicate total known visits. ED/C VISIT TRACKING (12 MO.) 06/29/2021 08:07 [facility] [place] TYPE: Emergency COMPLAINT: - SKIN RASH INPATIENT VISIT TRACKING (12 MO.) No inpatient visits to display in this time frame [email or web address]
[2021-06-29] MEDS ORDERED: ZYRTEC10 M3 PO (08:22)
== END 2021-06-29 08:53 | disposition home or self-care (01) ==
LOC: ED 08:06
DX: L30.9 Dermatitis, unspecified (principal); Z87.891 Personal history of nicotine dependence; Z88.1 Allergy status to other antibiotic agents; Z88.8 Allergy status to other drugs, medicaments and biological substances; Z88.0 Allergy status to penicillin; Z88.2 Allergy status to sulfonamides; Z79.899 Other long term (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
CPT/HCPCS: 99282

== ENCOUNTER 2021-06-30 07:49 | Emergency (ER) | payer OTHER ==
[~2021-06-30] VITALS: Ht 167.6 cm; Wt 98.2 kg
[~2021-06-30 07:49] MED LIST changes: +ZYRTEC10 M3 PO
--- OUTSIDE RECORDS SUMMARY | 2021-06-30 07:52 | XMS ---
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 Marcel has no Care Guidelines for this patient. Jessica VISIT COUNT (12 MO.) 2 [facility] [place] TOTAL 2 NOTE: Visits indicate total known visits. ED/C VISIT TRACKING (12 MO.) 06/30/2021 07:50 [facility] [place] [facility] [place] [facility] [place] COMPLAINT: - SWOLLEN EYES,SKIN RASH 06/29/2021 08:07 [facility] [place] TYPE: Emergency COMPLAINT: - SKIN RASH INPATIENT VISIT TRACKING (12 MO.) No inpatient visits to display in this time frame [email or web address]
== END 2021-06-30 08:28 | disposition home or self-care (01) ==
LOC: ED 07:49
DX: L30.9 Dermatitis, unspecified (principal); Z87.891 Personal history of nicotine dependence; Z88.8 Allergy status to other drugs, medicaments and biological substances; Z88.1 Allergy status to other antibiotic agents; Z88.0 Allergy status to penicillin; Z88.2 Allergy status to sulfonamides; Z79.899 Other long term (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
CPT/HCPCS: 99282; J7512

== ENCOUNTER 2021-09-26 08:35 | Day surgery (SDC) | payer OTHER ==
[~2021-09-26] VITALS: Ht 167.6 cm; Wt 95.5 kg
--- NOTE | ~2021-09-26 | OR ---
[facility] [address], [place] [address] Draft DATE OF OPERATION: 09/26/2021 SURGEON: Amauri Winston MD PREOPERATIVE DIAGNOSES: 1. Chronic frontal sinusitis. 2. Chronic ethmoiditis. 3. Chronic sphenoiditis. 4. Chronic maxillary sinusitis. POSTOPERATIVE DIAGNOSES: 1. Chronic frontal sinusitis. 2. Chronic ethmoiditis. 3. Chronic sphenoiditis. 4. Chronic maxillary sinusitis. PROCEDURES: 1. Bilateral frontal sinusotomies, 07923-10. 2. Bilateral sphenoidotomy, 24515-39. 3. Bilateral maxillary antrostomies with removal of soft tissue, 79531-16. INDICATIONS: This 40-year-old female has severe case of chronic sinusitis combined with severe allergies, this will make her fourth sinus surgery as the patient keeps scarring off and forming inflammatory tissue, which causes pain and exacerbation of her asthma. The most recent surgery addressed all areas, which were closed off and subsequent six months or so the patient has a totally closed off the left sphenoid sinus, both frontal sinuses, and has a lot of inflammatory tissue inside the maxillary sinuses. Also, the patient has pretty large accessory sphenoid sinus on the right side, which was infected and it is felt that if that right sphenoid sinus could be opened as wide as possible that this would allow the patient to irrigate and try to keep the lateral part of the accessory sphenoid sinus more open and free of infection. Allergy management also was barnes in this patient and does not adequately cover treatment of allergies. DESCRIPTION OF PROCEDURE: The patient was placed in the supine position, had an orotracheal intubation was placed under general anesthesia. After noting all of the issues from the CT scan, a couple of mL of 1% lidocaine with 1:200,000 epinephrine were injected on either side in the area of the middle turbinate remnant and uncinate process lateral wall just anterior to that. Right side was approached first. The patient had basically vertical division or PATIENT NAME: FROILAN PAEZ OPERATIVE REPORT DATE OF : 84 REPORT #: [id number] PHYSICIAN: AMAURI WINSTON MD PCP: DONNIE CARDENAS PA-C REPORT IS CONFIDENTIAL AND NOT TO BE RELEASED WITHOUT AUTHORIZATION [facility] [address], [place] [address] Draft interruption of the middle turbinate remnant. The anterior portion of that was scarred down forming a dense network to get through into the frontal sinus. Also, the previously opened sphenoid sinus with fishmouth and was just a couple of millimeters wide from the previous sphenoid sinusotomies. That scar tissue was removed and then more bone on the inferior and medial and lateral turcios were removed with Kerrison forceps. In removing more of the inferior portion of the sphenoid bone, the branch of the sphenopalatine artery was encountered and this was cauterized directly. Opening the sphenoid sinus going far down as possible basically the same level as that accessory sphenoid sinuses with purulence was aspirated out of the deepest part of the sphenoid sinus. The patient was covered on antibiotics. The maxillary sinus ostium was widened further, loss of scarring with the unit was removed. The curved attachment of the microdebrider was used to remove some of this inflammatory tissue and scar as well as a curved frontal sinus instruments to try and remove as much tissue out of the maxillary sinus as possible. A scar between the septum and the lateral wall in the proximity of the anterior remnant of the middle turbinate was removed. The both soft tissue scar and then more bone laterally and more of the inferior turbinate remnant anteriorly was removed, so that the frontal recess and frontal sinus could be opened. Lots of old mucus was aspirated after releasing the scar and opening it up again as widely as possible. Nasal pore was placed into this trying to help keep from scarring closed again. Then, attention was given to the left side. The sphenoid sinus was basically much smaller, but filled with inflammatory tissue and scar. Starting at that posterior aspect of the ethmoid, it was removed pulling posteriorly and then removing all of the inflammatory scar tissue to about the same circumference as the diameter of this small sphenoid sinus. The maxillary sinus tissue was removed again with long biting forceps and the frontal sinus instrument to remove some of that tissue and the posterior edge was left of it was removed to try make that flush with the posterior ethmoid air cells. Directing up into the frontal recess, scar was broken open, lots of old mucus aspirated. Further removal of some coronal septations of bone were removed to get up into the frontal sinus and totally cleared out. This tissue was removed with the microdebrider with a curved blade, trying not to strip any mucosa from the bone. Nasal pore was placed on that side as well and that was the end of the procedure. Estimated blood loss was about 200 mL. The patient went to the recovery room in good condition. No complications. MD BRANDAN Dietz/MODL /[id number] PATIENT NAME: FROILAN PAEZ OPERATIVE REPORT DATE OF : 84 REPORT #: [id number] PHYSICIAN: AMAURI WINSTON MD PCP: DONNIE CARDENAS PA-C REPORT IS CONFIDENTIAL AND NOT TO BE RELEASED WITHOUT AUTHORIZATION [address] [place], [place] [address] Draft Copies: ~ PATIENT NAME: FROILAN PAEZ OPERATIVE REPORT DATE OF : 84 REPORT #: [id number] PHYSICIAN: AMAURI WINSTON MD PCP: DONNIE CARDENAS PA-C REPORT IS CONFIDENTIAL AND NOT TO BE RELEASED WITHOUT AUTHORIZATION
[~2021-09-26 08:35] MED LIST changes: +TYLENOL COLD H1 EAC4 PO
[2021-09-26] MEDS ORDERED: VENTOLIN HFA18 GM INH (08:50)
--- NOTE | 2021-09-26 11:33 | NUR ---
09/26/21 1133 Cora Subramanian 1124- PT TO PACU IN SUPINE POSITION. EYES CLOSED. DOES NOT RESPOND TO VERBAL OR TACTILE STIMULI. ORAL AIRWAY IN PLACE. BREATHING EASY AND UNLABORED. SPO2 >95% ON 6 L O2 VIA SIMPLE MASK. HOB ELEVATED. 1128- PT COUGHING, OBEYS COMMANDS. ORAL AIRWAY REMOVED. BREATHING EASY AND UNLABORED. SPO2 >95% ON 6L O2 VIA SIMPLE MASK. PT FALLS QUICKLY BACK TO SLEEP. 1133- PT RESPONDS TO VERBAL AND TACTILE STIMULI. BREATHING EASY AND UNLABORED. SPO2 >95% ON 6 L O2 VIA SIMPLE MASK. PT OPENS EYES AND FALLS QUICKLY BACK TO SLEEP.
--- NOTE | 2021-09-26 12:30 | NUR ---
1225: PATIENT BACK IN DAY SURGERY ROOM FROM PACU. RATES PAIN 7/10 IN NOSE. DESCRIBES PAIN BURNING. MEDICATED FOR PAIN WITH IV FENTANYL IN PACU. DRIP PAD IN PLACE IS CLEAN, DRY, AND INTACT. VS CHECKED. IV SITE WNL. ICE WATER PLACED AT BEDSIDE. JELLO GIVEN TO PATIENT. DENIES NAUSEA. CALL LIGHT WITHIN REACH.
--- NOTE | 2021-09-26 12:45 | NUR ---
PATIENT MEDICATED FOR PAIN WITH 2 TABS OF TYLENOL WITH CODEINE. TOLERATED JELLO. SANDWICH ORDERED. CALL LIGHT WITHIN REACH.
--- NOTE | 2021-09-26 13:24 | NUR ---
PATIENT ASSISTED OOB AND TO BATHROOM. GAIT STEADY. VOID WITHOUT DIFFICULTY. GAIT STEADY BACK TO ROOM. VS CHECKED. RATES PAIN 01/05. SANDWICH HERE. GIVEN SODA. CALL LIGHT WITHIN REACH.
== END 2021-09-26 13:55 | disposition home or self-care (01) ==
LOC: DS 08:35
PROVIDERS: ATTEND Otolaryngology
PROC: 09BW8ZZ Excision of Right Sphenoid Sinus, Via Natural or Artificial Opening Endoscopic (ICD-10-PCS; 2021-09-26)
PROC: 09BX8ZZ Excision of Left Sphenoid Sinus, Via Natural or Artificial Opening Endoscopic (ICD-10-PCS; 2021-09-26)
PROC: 09BQ8ZZ Excision of Right Maxillary Sinus, Via Natural or Artificial Opening Endoscopic (ICD-10-PCS; 2021-09-26)
PROC: 09BR8ZZ Excision of Left Maxillary Sinus, Via Natural or Artificial Opening Endoscopic (ICD-10-PCS; 2021-09-26)
PROC: 09BS8ZZ Excision of Right Frontal Sinus, Via Natural or Artificial Opening Endoscopic (ICD-10-PCS; 2021-09-26)
PROC: 09BT8ZZ Excision of Left Frontal Sinus, Via Natural or Artificial Opening Endoscopic (ICD-10-PCS; principal; 2021-09-26 11:00)
DX: J32.8 Other chronic sinusitis (principal); J45.909 Unspecified asthma, uncomplicated; F17.290 Nicotine dependence, other tobacco product, uncomplicated; Z88.0 Allergy status to penicillin; Z88.2 Allergy status to sulfonamides
CPT/HCPCS: A9270; J0131; J1100; J2001; J2405; J2704; J3010; J7121

== ENCOUNTER 2021-11-04 14:36 | Emergency (ER) | payer OTHER ==
[~2021-11-04] VITALS: Ht 167.6 cm; Wt 93.0 kg
[~2021-11-04 14:36] MED LIST changes: +VENTOLIN HFA18 GM INH
== END 2021-11-04 16:23 | disposition home or self-care (01) ==
LOC: ED 14:36
DX: N39.0 Urinary tract infection, site not specified (principal); Z87.891 Personal history of nicotine dependence; Z88.0 Allergy status to penicillin; Z88.1 Allergy status to other antibiotic agents; Z88.2 Allergy status to sulfonamides; Z88.8 Allergy status to other drugs, medicaments and biological substances; Z79.899 Other long term (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; Z79.51 Long term (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 of 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
CPT/HCPCS: 81001; 99283

== ENCOUNTER 2022-04-12 19:42 | Emergency (ER) | payer OTHER ==
[~2022-04-12] VITALS: Ht 167.6 cm; Wt 88.5 kg
[~2022-04-12 19:42] MED LIST changes: +HYDROCODON-ACE1 EA10 PO; +ONDANSETRON ODT8 MG PO
--- OUTSIDE RECORDS SUMMARY | 2022-04-12 19:44 | XMS ---
PreManage Notification: FROILAN PAEZ Security Housekeeper Child Care Events No recent Security Events currently on file CRITERIA MET - - 2 Visits in 30 Days CARE PROVIDERS DONNIE CARDENAS Physician Elevator Repairer Current PHONE: Unknown Marcel has no Care Guidelines for this patient. ERitu VISIT COUNT (12 MO.) 5 [facility] TOTAL 5 NOTE: Visits indicate total known visits. ED/UCC VISIT TRACKING (12 MO.) 04/12/2022 19:42 [facility] TYPE: Emergency COMPLAINT: - POSS UTI 03/30/2022 19:26 [facility] TYPE: Emergency COMPLAINT: - ABD PAIN 11/04/2021 14:37 [facility] TYPE: Emergency COMPLAINT: - URINE PROBLEM DIAGNOSES: - Dysuria - Allergy status to other antibiotic agents - penitentiary (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 of 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 - Allergy status to penicillin - Allergy status to sulfonamides - Urinary tract infection, site not specified - Other skilled nursing (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 - Allergy status to other drugs, medicaments and biological substances - Personal history of nicotine dependence 06/30/2021 07:50 [facility] TYPE: Emergency COMPLAINT: - SWOLLEN EYES,SKIN RASH DIAGNOSES: - Personal history of nicotine dependence - Allergy status to other antibiotic agents - Allergy status to other drugs, medicaments and biological substances - Rash and other nonspecific skin eruption - Other skilled nursing (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 - Allergy status to penicillin - Allergy status to sulfonamides - Dermatitis, unspecified 06/29/2021 08:07 [facility] TYPE: Emergency COMPLAINT: - SKIN RASH DIAGNOSES: - Allergy status to other antibiotic agents - Other skilled nursing (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 - Allergy status to penicillin - Allergy status to sulfonamides - Rash and other nonspecific skin eruption - Personal history of nicotine dependence - Dermatitis, unspecified - Allergy status to other drugs, medicaments and biological substances INPATIENT VISIT TRACKING (12 MO.) No inpatient visits to display in this time frame [id number]
[2022-04-12] MEDS ORDERED: PYRIDIUM200 MG PO (21:12)
[2022-04-13] MEDS ORDERED: ONDANSETRON ODT8 MG PO (14:27)
[2022-04-13] MEDS ORDERED: DICYCLOMINE HCL20 MG PO (14:27)
== END 2022-04-12 21:23 | disposition home or self-care (01) ==
LOC: ED 19:42
DX: R30.0 Dysuria (principal); K21.9 Gastro-esophageal reflux disease without esophagitis; Z87.891 Personal history of nicotine dependence; Z88.0 Allergy status to penicillin; Z88.2 Allergy status to sulfonamides; Z88.8 Allergy status to other drugs, medicaments and biological substances
CPT/HCPCS: 81001; 84703; 99283

== ENCOUNTER 2022-04-13 12:30 | Emergency (ER) | payer OTHER ==
[~2022-04-13] VITALS: Ht 167.6 cm; Wt 88.6 kg
[~2022-04-13 12:30] MED LIST changes: +PYRIDIUM200 MG PO
--- OUTSIDE RECORDS SUMMARY | 2022-04-13 12:32 | XMS ---
PreManage Notification: FROILAN PAEZ Security Machine Deburrer Events No recent Security Events currently on file CRITERIA MET - [facility] - 2 Visits in 30 Days CARE PROVIDERS DONNIE CARDENAS Physician Line Supervisor Current PHONE: Unknown Marcel has no Care Guidelines for this patient. ERitu VISIT COUNT (12 MO.) 6 [facility] TOTAL 6 NOTE: Visits indicate total known visits. ED/UCC VISIT TRACKING (12 MO.) 04/13/2022 12:30 [facility] TYPE: Emergency COMPLAINT: - NAUSEA 04/12/2022 19:[address] 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 of 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 - Allergy status to penicillin - Allergy status to sulfonamides - Urinary tract infection, site not specified - Other tank terminal gauger (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 - Allergy status to other drugs, medicaments and biological substances 06/30/2021 07:50 [facility] TYPE: Emergency COMPLAINT: - SWOLLEN EYES,SKIN RASH DIAGNOSES: - Dermatitis, unspecified - Personal history of nicotine dependence - Allergy status to other antibiotic agents - Allergy status to other drugs, medicaments and biological substances - Rash and other nonspecific skin eruption - Other alf (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 - Allergy status to penicillin - Allergy status to sulfonamides 06/29/2021 08:07 [facility] TYPE: Emergency COMPLAINT: - SKIN RASH DIAGNOSES: - Allergy status to other drugs, medicaments and biological substances - Allergy status to other antibiotic agents - Other tank terminal gauger (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 - Allergy status to penicillin - Allergy status to sulfonamides - Rash and other nonspecific skin eruption - Personal history of nicotine dependence - Dermatitis, unspecified INPATIENT VISIT TRACKING (12 MO.) No inpatient visits to display in this time frame [id number]
[2022-04-13] MEDS ORDERED: ONDANSETRON ODT8 MG PO (14:27)
[2022-04-13] MEDS ORDERED: DICYCLOMINE HCL20 MG PO (14:27)
== END 2022-04-13 14:38 | disposition home or self-care (01) ==
LOC: ED 12:30
DX: R10.11 Right upper quadrant pain (principal); Z87.891 Personal history of nicotine dependence; Z88.0 Allergy status to penicillin; Z88.1 Allergy status to other antibiotic agents; Z88.2 Allergy status to sulfonamides; Z88.8 Allergy status to other drugs, medicaments and biological substances; Z79.899 Other long term (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
CPT/HCPCS: 36415; 76705; 80053; 81001; 83690; 85025; 96374; 96375; 99284-25; J1885; J2405; J7030

== ENCOUNTER 2022-04-22 16:54 | Emergency (ER) | payer OTHER ==
[~2022-04-22] VITALS: Ht 165.1 cm; Wt 89.8 kg
[~2022-04-22 16:54] MED LIST changes: +DICYCLOMINE HCL20 MG PO
--- OUTSIDE RECORDS SUMMARY | 2022-04-22 16:56 | XMS ---
PreManage Notification: FROILAN PAEZ Security Natural Gas Field Processing Supervisor Events No recent Security Events currently on file CRITERIA MET - [place] [facility] - 2 Visits in 30 Days CARE PROVIDERS DONNIE CARDENAS Physician Swedish Masseuse Current PHONE: Unknown Marcel has no Care Guidelines for this patient. ERitu VISIT COUNT (12 MO.) 7 [facility] TOTAL 7 NOTE: Visits indicate total known visits. ED/UCC VISIT TRACKING (12 MO.) 04/22/2022 16:54 [facility] TYPE: Emergency COMPLAINT: - ABDOMINAL PAIN 04/13/2022 12:30 [facility] [place] TYPE: Emergency COMPLAINT: - NAUSEA 04/12/2022 19:42 [facility] TYPE: Emergency COMPLAINT: - POSS UTI 03/30/2022 19:26 [facility] TYPE: Emergency COMPLAINT: - ABD PAIN DIAGNOSES: - Allergy status to other drugs, medicaments and biological substances - Other senior living (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 - Calculus of bile duct without cholangitis or cholecystitis without obstruction - Allergy status to sulfonamides - Gastro-esophageal reflux disease without esophagitis - Personal history of nicotine dependence - Unspecified abdominal pain - Allergy status to penicillin 11/04/2021 14:37 [facility] TYPE: Emergency COMPLAINT: - URINE PROBLEM DIAGNOSES: - Allergy status to other antibiotic agents - nursing home (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 of 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 - Allergy status to penicillin - Allergy status to sulfonamides - Urinary tract infection, site not specified - Other senior living (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 - Allergy status to other drugs, medicaments and biological substances - Personal history of nicotine dependence - Dysuria 06/30/2021 07:50 [facility] TYPE: Emergency COMPLAINT: - SWOLLEN EYES,SKIN RASH DIAGNOSES: - Allergy status to other antibiotic agents - Allergy status to other drugs, medicaments and biological substances - Rash and other nonspecific skin eruption - Other senior living (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 - Allergy status to penicillin - Allergy status to sulfonamides - Dermatitis, unspecified - Personal history of nicotine dependence 06/29/2021 08:07 [facility] TYPE: Emergency COMPLAINT: - SKIN RASH DIAGNOSES: - Other manager intermediate (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 - Allergy status to penicillin - Allergy status to sulfonamides - Rash and other nonspecific skin eruption - Personal history of nicotine dependence - Dermatitis, unspecified - Allergy status to other drugs, medicaments and biological substances - Allergy status to other antibiotic agents INPATIENT VISIT TRACKING (12 MO.) No inpatient visits to display in this time frame [id number]
== END 2022-04-22 23:15 | disposition home or self-care (01) ==
LOC: ED 16:54
DX: R10.10 Upper abdominal pain, unspecified (principal); Z87.891 Personal history of nicotine dependence; Z88.0 Allergy status to penicillin; Z88.1 Allergy status to other antibiotic agents; Z88.2 Allergy status to sulfonamides; Z88.8 Allergy status to other drugs, medicaments and biological substances; Z79.899 Other long term (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
CPT/HCPCS: 36415; 80053; 81001; 83690; 83735; 84703; 85025; J1885

== ENCOUNTER 2022-05-07 23:51 | Emergency (ER) | payer OTHER ==
[~2022-05-07] VITALS: Ht 165.1 cm; Wt 89.5 kg
--- OUTSIDE RECORDS SUMMARY | 2022-05-07 23:54 | XMS ---
PreManage Notification: FROILAN PAEZ Security Triage Specialist Events No recent Security Events currently on file CRITERIA MET - [facility] - 2 Visits in 30 Days CARE PROVIDERS DONNIE CARDENAS Physician Airplane Dispatch Clerk Current PHONE: Unknown Marcel has no Care Guidelines for this patient. ERitu VISIT COUNT (12 MO.) 8 [facility] TOTAL 8 NOTE: Visits indicate total known visits. ED/UCC VISIT TRACKING (12 MO.) 05/07/2022 23:51 [facility] TYPE: Emergency COMPLAINT: - SORE THROAT, COUGH 04/22/2022 16:54 [facility] TYPE: Emergency COMPLAINT: - ABDOMINAL PAIN DIAGNOSES: - Allergy status to penicillin - Allergy status to other drugs, medicaments and biological substances - Allergy status to other antibiotic agents - Personal history of nicotine dependence - Other [facility] (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 - Allergy status to sulfonamides - Upper abdominal pain, unspecified 04/13/2022 12:30 [facility] TYPE: Emergency COMPLAINT: - ABD PN DIAGNOSES: - 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 customer service (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 - Right upper quadrant pain - Allergy status to other drugs, medicaments and biological substances - Allergy status to sulfonamides - Allergy status to penicillin - Personal history of nicotine dependence - Allergy status to other antibiotic agents 04/12/2022 19:42 [facility] TYPE: Emergency COMPLAINT: - POSS UTI DIAGNOSES: - Allergy status to penicillin - Allergy status to sulfonamides - Personal history of nicotine dependence - Gastro-esophageal reflux disease without esophagitis - Allergy status to other drugs, medicaments and biological substances - Dysuria 03/30/2022 19:26 [facility] TYPE: Emergency COMPLAINT: - ABD PAIN DIAGNOSES: - Calculus of bile duct without cholangitis or cholecystitis without obstruction - Allergy status to sulfonamides - Gastro-esophageal reflux disease without esophagitis - Personal history of nicotine dependence - Unspecified abdominal pain - Allergy status to penicillin - Allergy status to other drugs, medicaments and biological substances - 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 service (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 11/04/2021 14:37 [facility] TYPE: Emergency COMPLAINT: - URINE PROBLEM DIAGNOSES: - Allergy status to penicillin - Allergy status to sulfonamides - Urinary tract infection, site not specified - 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 customer service (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 - Allergy status to other drugs, medicaments and biological substances - Personal history of nicotine dependence - Dysuria - Allergy status to other antibiotic agents - [facility] (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 of 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 06/30/2021 07:50 [facility] TYPE: Emergency COMPLAINT: - SWOLLEN EYES,SKIN RASH DIAGNOSES: - Rash and other nonspecific skin eruption - Other [facility] (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 - Allergy status to penicillin - Allergy status to sulfonamides - Dermatitis, unspecified - Personal history of nicotine dependence - Allergy status to other antibiotic agents - Allergy status to other drugs, medicaments and biological substances 06/29/2021 08:07 [facility] TYPE: Emergency COMPLAINT: - SKIN RASH DIAGNOSES: - Allergy status to sulfonamides - Rash and other nonspecific skin eruption - Personal history of nicotine dependence - Dermatitis, unspecified - Allergy status to other drugs, medicaments and biological substances - Allergy status to other antibiotic agents - Other [facility] (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 - Allergy status to penicillin INPATIENT VISIT TRACKING (12 MO.) No inpatient visits to display in this time frame [id number]
[2022-05-08] MEDS ORDERED: LIDOCAINE HCL100 ML MT (01:47)
[2022-05-08] MEDS ORDERED: BENZONATATE100 MG PO (01:47)
== END 2022-05-08 02:03 | disposition home or self-care (01) ==
LOC: ED 23:51
DX: J02.9 Acute pharyngitis, unspecified (principal); Z20.822 Contact with and (suspected) exposure to COVID-19; Z87.891 Personal history of nicotine dependence; Z88.0 Allergy status to penicillin; Z88.2 Allergy status to sulfonamides; Z88.1 Allergy status to other antibiotic agents
CPT/HCPCS: 87502; 87880; 99283; C9803; U0003

== ENCOUNTER 2022-05-11 19:41 | Emergency (ER) | payer OTHER ==
[~2022-05-11] VITALS: Ht 165.1 cm; Wt 89.4 kg
[~2022-05-11 19:41] MED LIST changes: +BENZONATATE100 MG PO; +LIDOCAINE HCL100 ML MT
--- OUTSIDE RECORDS SUMMARY | 2022-05-11 19:44 | XMS ---
PreManage Notification: FROILAN PAEZ Security Safety Risk Lead Events No recent Security Events currently on file CRITERIA MET - [facility] - 2 Visits in 30 Days - 6 ED Visits in 6 Months CARE PROVIDERS DONNIE CARDENAS Physician Pit Furnace Operator Current PHONE: Unknown Marcel has no Care Guidelines for this patient. ERitu VISIT COUNT (12 MO.) [address] [place] [address] TOTAL 9 NOTE: Visits indicate total known visits. ED/UCC VISIT TRACKING (12 MO.) 05/11/2022 19:42 [facility] TYPE: Emergency COMPLAINT: - SORE THROAT AND COUGH 05/07/2022 23:51 [facility] TYPE: Emergency COMPLAINT: - SORE THROAT, COUGH DIAGNOSES: - Allergy status to penicillin - Acute pharyngitis, unspecified - Allergy status to sulfonamides - Allergy status to other antibiotic agents - Personal history of nicotine dependence - Contact with and (suspected) exposure to COVID-19 04/22/2022 16:54 [facility] TYPE: Emergency COMPLAINT: - ABDOMINAL PAIN DIAGNOSES: - Personal history of nicotine dependence - Other penitentiary (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 - Allergy status to sulfonamides - Upper abdominal pain, unspecified - Allergy status to penicillin - Allergy status to other drugs, medicaments and biological substances - Allergy status to other antibiotic agents 04/13/2022 12:30 [facility] TYPE: Emergency COMPLAINT: - ABD PN DIAGNOSES: - Allergy status to sulfonamides - Allergy status to penicillin - Personal history of nicotine dependence - Allergy status to other antibiotic agents - Other penitentiary (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 - Right upper quadrant pain - Allergy status to other drugs, medicaments and biological substances 04/12/2022 19:42 [facility] TYPE: Emergency COMPLAINT: - POSS UTI DIAGNOSES: - Gastro-esophageal reflux disease without esophagitis - Allergy status to other drugs, medicaments and biological substances - Dysuria - Allergy status to penicillin - Allergy status to sulfonamides - Personal history of nicotine dependence 03/30/2022 19:26 [facility] TYPE: Emergency COMPLAINT: - ABD PAIN DIAGNOSES: - Personal history of nicotine dependence - Unspecified abdominal pain - Allergy status to penicillin - Allergy status to other drugs, medicaments and biological substances - Other buttermaker (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 - Calculus of bile duct without cholangitis or cholecystitis without obstruction - Allergy status to sulfonamides - Gastro-esophageal reflux disease without esophagitis 11/04/2021 14:37 [facility] TYPE: Emergency COMPLAINT: - URINE PROBLEM DIAGNOSES: - Allergy status to other drugs, medicaments and biological substances - Personal history of nicotine dependence - Dysuria - Allergy status to other antibiotic agents - jail (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 of 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 - Allergy status to penicillin - Allergy status to sulfonamides - Urinary tract infection, site not specified - Other buttermaker (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 06/30/2021 07:50 [facility] TYPE: Emergency COMPLAINT: - SWOLLEN EYES,SKIN RASH DIAGNOSES: - Allergy status to sulfonamides - Dermatitis, unspecified - Personal history of nicotine dependence - Allergy status to other antibiotic agents - Allergy status to other drugs, medicaments and biological substances - Rash and other nonspecific skin eruption - Other buttermaker (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 - Allergy status to penicillin 06/29/2021 08:07 [facility] TYPE: Emergency COMPLAINT: - SKIN RASH DIAGNOSES: - Dermatitis, unspecified - Allergy status to other drugs, medicaments and biological substances - Allergy status to other antibiotic agents - Other penitentiary (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 - Allergy status to penicillin - Allergy status to sulfonamides - Rash and other nonspecific skin eruption - Personal history of nicotine dependence INPATIENT VISIT TRACKING (12 MO.) No inpatient visits to display in this time frame [id number]
== END 2022-05-11 21:09 | disposition home or self-care (01) ==
LOC: ED 19:41
DX: J02.9 Acute pharyngitis, unspecified (principal); K21.9 Gastro-esophageal reflux disease without esophagitis; Z87.891 Personal history of nicotine dependence; Z88.8 Allergy status to other drugs, medicaments and biological substances; Z88.0 Allergy status to penicillin; Z88.1 Allergy status to other antibiotic agents; Z88.2 Allergy status to sulfonamides; Z79.899 Other long term (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
CPT/HCPCS: 87880; 99283

== ENCOUNTER 2022-09-14 19:12 | Emergency (ER) | payer OTHER ==
[~2022-09-14] VITALS: Ht 165.1 cm; Wt 90.9 kg
--- OUTSIDE RECORDS SUMMARY | 2022-09-14 19:16 | XMS ---
PreManage Notification: FROILAN PAEZ Security Lead Electrical Engineer Events No recent Security Events currently on file CRITERIA MET - [facility] - 2 Visits in 30 Days - 6 ED Visits in 6 Months CARE PROVIDERS -Cesar- Dentist: Human Geography Faculty Member [facility] PHONE: [phone] DONNIE CARDENAS Physician Certified Lactation Counselor Current PHONE: Unknown Marcel has no Care Guidelines for this patient. ERitu VISIT COUNT (12 MO.) [address] [place] [address] TOTAL 9 NOTE: Visits indicate total known visits. ED/UCC VISIT TRACKING (12 MO.) 09/14/2022 19:13 [facility] TYPE: Emergency COMPLAINT: - SHOULDER PAIN RIGHT SIDE 09/08/2022 20:12 [facility] TYPE: Emergency COMPLAINT: - POSS UTI DIAGNOSES: - Allergy status to sulfonamides - Personal history of nicotine dependence - [facility] (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 of aspirin - Strain of muscle, fascia and tendon of lower back, initial encounter - Allergy status to penicillin - supervisor intermediates (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 of systemic steroids - Exposure to other specified factors, initial encounter - Low back pain, unspecified - Other [facility] (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 - Gastro-esophageal reflux disease without esophagitis 05/11/2022 19:42 [facility] TYPE: Emergency COMPLAINT: - SORE THROAT AND COUGH DIAGNOSES: - Gastro-esophageal reflux disease without esophagitis - Allergy status to other drugs, medicaments and biological substances - Allergy status to other antibiotic agents - Allergy status to sulfonamides - Allergy status to penicillin - Other fci (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 - Acute pharyngitis, unspecified - Personal history of nicotine dependence 05/07/2022 23:51 [facility] TYPE: Emergency [...] Personal history of nicotine dependence - Other fci (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 - Allergy status to [...] status to other antibiotic agents - Other fci (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 - Right upper quadrant [...] Personal history of nicotine dependence 03/30/2022 19:[address] [facility] [place] TYPE: Emergency COMPLAINT: - ABD PAIN DIAGNOSES: - Personal history of nicotine dependence - Unspecified abdominal pain - Allergy status to penicillin - Allergy status to other drugs, medicaments and biological substances - Other fci (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 - Calculus of bile duct without cholangitis or cholecystitis without obstruction - Allergy status to sulfonamides - Gastro-esophageal reflux disease without esophagitis 11/04/2021 14:[address] [facility] [place] TYPE: Emergency COMPLAINT: - URINE PROBLEM DIAGNOSES: - Other continuous churn buttermaker (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 - Allergy status to other drugs, medicaments and biological substances - Personal history of nicotine dependence - Dysuria - Allergy status to other antibiotic agents - supervisor intermediates (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 of 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 - Allergy status to penicillin - Allergy status to sulfonamides - Urinary tract infection, site not specified INPATIENT VISIT TRACKING (12 MO.) No inpatient visits to display in this time frame [id number]
[2022-09-14] MEDS ORDERED: KETOROLAC TROME10 MG PO (19:54)
[2022-09-14] MEDS ORDERED: DIAZEPAM5 MG PO (19:54)
[2022-09-14] MEDS ORDERED: LIDODERM1 EACH TOP (19:54)
== END 2022-09-14 20:37 | disposition home or self-care (01) ==
LOC: ED 19:12
DX: S46.911A Strain of unspecified muscle, fascia and tendon at shoulder and upper arm level, right arm, initial encounter (principal); X58.XXXA Exposure to other specified factors, initial encounter; Z87.891 Personal history of nicotine dependence; Z88.0 Allergy status to penicillin; Z88.2 Allergy status to sulfonamides; Z88.8 Allergy status to other drugs, medicaments and biological substances; Z79.899 Other long term (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; Z79.52 Long term (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 of systemic steroids
CPT/HCPCS: 96372; 99283; A9270; J1885; J3360

== ENCOUNTER 2023-03-09 19:09 | Emergency (ER) | payer OTHER ==
[~2023-03-09] VITALS: Ht 165.1 cm; Wt 95.0 kg
[~2023-03-09 19:09] MED LIST changes: +ADVAIR HFA 45-212 GM INH; +CHILDREN'S1 MG/1 M3 PO; +CITALOPRAM HBR20 MG PO; +DIAZEPAM5 MG PO; +DOXYCYCLINE HY100 MG PO; +FLUTICASONE PRO16 GM NAS; +KETOROLAC TROME10 MG PO; +LIDODERM1 EACH TOP; +MONTELUKAST SOD10 MG PO
[2023-03-09] MEDS ORDERED: BENZONATATE100 MG PO (20:34)
[2023-03-09] MEDS ORDERED: LEVOFLOXACIN500 MG PO (20:34)
[2023-03-09 20:56] VITALS: BP 130/85
== END 2023-03-09 20:58 | disposition home or self-care (01) ==
LOC: ED 19:09
DX: J32.9 Chronic sinusitis, unspecified (principal); H60.91 Unspecified otitis externa, right ear; J45.909 Unspecified asthma, uncomplicated; K21.9 Gastro-esophageal reflux disease without esophagitis; Z87.891 Personal history of nicotine dependence; Z88.0 Allergy status to penicillin; Z88.2 Allergy status to sulfonamides; Z88.8 Allergy status to other drugs, medicaments and biological substances; Z79.899 Other long term (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

== ENCOUNTER 2023-05-12 09:30 | Emergency (ER) | payer OTHER ==
[~2023-05-12] VITALS: Ht 165.1 cm; Wt 98.1 kg
[~2023-05-12 09:30] MED LIST changes: +LEVOFLOXACIN500 MG PO
[2023-05-12] MEDS ORDERED: MONODOX100 MG PO (10:43)
[2023-05-12] MEDS ORDERED: METRONIDAZOLE500 MG PO (10:43)
[2023-05-12 11:16] VITALS: BP 123/69
== END 2023-05-12 11:17 | disposition home or self-care (01) ==
LOC: ED 09:30
DX: M25.562 Pain in left knee (principal); J32.9 Chronic sinusitis, unspecified; Z87.891 Personal history of nicotine dependence; Z88.0 Allergy status to penicillin; Z88.2 Allergy status to sulfonamides; Z88.8 Allergy status to other drugs, medicaments and biological substances; Z79.01 Long term (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 of anticoagulants; Z79.899 Other long term (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
CPT/HCPCS: 73560; 99283-25

== ENCOUNTER 2023-06-21 01:12 | Emergency (ER) | payer OTHER ==
[~2023-06-21] VITALS: Ht 165.1 cm; Wt 99.0 kg
[~2023-06-21 01:12] MED LIST changes: +METRONIDAZOLE500 MG PO; +MONODOX100 MG PO
[2023-06-21 02:29] VITALS: BP 134/87
== END 2023-06-21 02:32 | disposition home or self-care (01) ==
LOC: ED 01:12
DX: M25.562 Pain in left knee (principal); G89.29 Other chronic pain; K21.9 Gastro-esophageal reflux disease without esophagitis; J45.909 Unspecified asthma, uncomplicated; Z88.0 Allergy status to penicillin; Z88.2 Allergy status to sulfonamides; Z88.8 Allergy status to other drugs, medicaments and biological substances; Z79.51 Long term (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 of 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; Z79.899 Other long term (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; Z87.891 Personal history of nicotine dependence
CPT/HCPCS: 99283; A9270

== ENCOUNTER 2023-08-20 22:03 | Emergency (ER) | payer OTHER ==
[~2023-08-20] VITALS: Ht 165.1 cm; Wt 102.5 kg
[2023-08-20] MEDS ORDERED: TRAMADOL HCL 50 MG HOME.PACK PO ONE (22:15)
[2023-08-20 22:36] VITALS: BP 130/85
== END 2023-08-20 22:36 | disposition home or self-care (01) ==
LOC: ED 22:03
DX: M25.562 Pain in left knee (principal); G89.29 Other chronic pain; K21.9 Gastro-esophageal reflux disease without esophagitis; J45.909 Unspecified asthma, uncomplicated; Z87.891 Personal history of nicotine dependence; Z88.0 Allergy status to penicillin; Z88.2 Allergy status to sulfonamides; Z88.8 Allergy status to other drugs, medicaments and biological substances; Z79.51 Long term (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 of 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; Z79.899 Other long term (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
CPT/HCPCS: 99283; A9270

== ENCOUNTER 2023-10-29 18:47 | Emergency (ER) | payer OTHER ==
[~2023-10-29] VITALS: Ht 165.1 cm; Wt 106.6 kg
[2023-10-29] MEDS ORDERED: LEVOFLOXACIN750 MG PO (20:20)
[2023-10-29] MEDS ORDERED: TRAMADOL HCL50 MG PO (20:21)
[2023-10-29] MEDS ORDERED: HYDROCODONE BIT/ACETAMINOPHEN 5/325 MG 1 TAB HOME.PACK PO ONE (20:30)
[2023-10-29] MEDS ORDERED: levoFLOXacin 750 MG TAB PO ONE (20:30)
[2023-10-29 20:53] VITALS: BP 123/84
== END 2023-10-29 20:53 | disposition home or self-care (01) ==
LOC: ED 18:47
DX: J32.9 Chronic sinusitis, unspecified (principal); K04.7 Periapical abscess without sinus; K21.9 Gastro-esophageal reflux disease without esophagitis; J45.909 Unspecified asthma, uncomplicated; Z87.891 Personal history of nicotine dependence; Z88.0 Allergy status to penicillin; Z88.2 Allergy status to sulfonamides; Z88.8 Allergy status to other drugs, medicaments and biological substances; Z79.51 Long term (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 of 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; Z79.899 Other long term (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
CPT/HCPCS: 99283; A9270

== ENCOUNTER 2023-12-12 05:13 | Emergency (ER) | payer OTHER ==
[~2023-12-12] VITALS: Ht 165.1 cm; Wt 110.0 kg
[~2023-12-12 05:13] MED LIST changes: +LEVOFLOXACIN750 MG PO
--- OUTSIDE RECORDS SUMMARY | 2023-12-12 05:14 | XMS ---
PreManage Notification: FROILAN PAEZ Security Lip Reading Teacher Events No recent Security Events currently on file CRITERIA MET - [facility] - 2 Visits in 30 Days CARE PROVIDERS -[facility] Dentist: Prison Teacher [facility] PHONE: [phone] -Cesar- Dentist: Prison Teacher [facility] PHONE: [phone] Marcel has no Care Guidelines for this patient. Jessica VISIT COUNT (12 MO.) [address] [place] [address] TOTAL 8 NOTE: Visits indicate total known visits. ED/UCC VISIT TRACKING (12 MO.) 12/12/2023 05:13 [facility] [place] TYPE: Emergency COMPLAINT: - SORE THROAT 12/05/2023 17:37 [facility] [place] TYPE: Emergency COMPLAINT: - ASTHMA, COUGHING DIAGNOSES: - Allergy status to other drugs, medicaments and biological substances - Allergy status to penicillin - Allergy status to sulfonamides - Chronic cough - Other penitentiary (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 - Personal history of nicotine dependence - Unspecified asthma, uncomplicated 10/29/2023 18:48 [facility] [place] TYPE: Emergency COMPLAINT: - FACIAL PAIN DIAGNOSES: - Allergy status to other drugs, medicaments and biological substances - Allergy status to penicillin - Allergy status to sulfonamides - Chronic sinusitis, unspecified - Gastro-esophageal reflux disease without esophagitis - intermediate project manager (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 of 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 - Other penitentiary (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 - Other specified disorders of teeth and supporting structures - Periapical abscess without sinus - Personal history of nicotine dependence - Unspecified asthma, uncomplicated 08/20/2023 22:04 [facility] [place] TYPE: Emergency COMPLAINT: - LT KNEE PAIN/ NO INJ DIAGNOSES: - Allergy status to other drugs, medicaments and biological substances - Allergy status to penicillin - Allergy status to sulfonamides - Gastro-esophageal reflux disease without esophagitis - long-term (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 of 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 - Other chronic pain - 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 (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 - Pain in left knee - Personal history of nicotine dependence - Unspecified asthma, uncomplicated 06/21/2023 01:13 [facility] [place] TYPE: Emergency COMPLAINT: - L KNEE PAIN DIAGNOSES: - Allergy status to other drugs, medicaments and biological substances - Allergy status to penicillin - Allergy status to sulfonamides - Gastro-esophageal reflux disease without esophagitis - intermediate project manager (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 of 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 - Other chronic pain - Other penitentiary (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 - Pain in left knee - Personal history of nicotine dependence - Unspecified asthma, uncomplicated 05/12/2023 09:30 [facility] [place] TYPE: Emergency COMPLAINT: - L KNEE SWOLLEN, PAIN DIAGNOSES: - Allergy status to other drugs, medicaments and biological substances - Allergy status to penicillin - Allergy status to sulfonamides - Chronic sinusitis, unspecified - intermediate project manager (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 of anticoagulants - 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 (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 - Pain in left knee - Personal history of nicotine dependence 03/09/2023 19:10 [facility] [place] TYPE: Emergency COMPLAINT: - SINUS PROBLEM DIAGNOSES: - Allergy status to other drugs, medicaments and biological substances - Allergy status to penicillin - Allergy status to sulfonamides - Chronic sinusitis, unspecified - Gastro-esophageal reflux disease without esophagitis - Otalgia, right ear - Other penitentiary (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 - Personal history of nicotine dependence - Unspecified asthma, uncomplicated - Unspecified otitis externa, right ear 12/13/2022 14:05 [facility] [place] TYPE: Emergency COMPLAINT: - DIFFICULTY BREATHING DIAGNOSES: - Allergy status to other drugs, medicaments and biological substances - Allergy status to penicillin - Allergy status to sulfonamides - long-term (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 of systemic steroids - 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 (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 - Personal history of nicotine dependence - Shortness of breath - Unspecified asthma with (acute) exacerbation INPATIENT VISIT TRACKING (12 MO.) No inpatient visits to display in this time frame [id number]
[2023-12-12] MEDS ORDERED: CLEOCIN HCL300 MG PO (06:00)
[2023-12-12 06:11] VITALS: BP 142/97
[2023-12-12] MEDS ORDERED: clindamycin HCL 300 MG HOME.PACK PO ONE (06:15)
== END 2023-12-12 06:11 | disposition home or self-care (01) ==
LOC: ED 05:13
DX: J02.9 Acute pharyngitis, unspecified (principal); J32.9 Chronic sinusitis, unspecified; K21.9 Gastro-esophageal reflux disease without esophagitis; Z87.891 Personal history of nicotine dependence; Z88.0 Allergy status to penicillin; Z88.2 Allergy status to sulfonamides; Z88.8 Allergy status to other drugs, medicaments and biological substances; Z79.899 Other long term (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
CPT/HCPCS: 87651; 99283

== ENCOUNTER 2023-12-25 03:57 | Emergency (ER) | payer OTHER ==
[~2023-12-25] VITALS: Ht 165.1 cm; Wt 106.4 kg
[~2023-12-25 03:57] MED LIST changes: +CLEOCIN HCL300 MG PO
--- OUTSIDE RECORDS SUMMARY | 2023-12-25 03:58 | XMS ---
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 ERitu VISIT COUNT (12 MO.) [address] [place] [address] TOTAL 9 NOTE: Visits indicate total known visits. ED/UCC VISIT TRACKING (12 MO.) 12/25/2023 03:57 [facility] [place] TYPE: Emergency COMPLAINT: - COLD SYMPTOMS 12/24/2023 21:05 [facility] [place] TYPE: Emergency COMPLAINT: - COLD SYMPTOMS 12/12/2023 05:13 [facility] [place] TYPE: Emergency COMPLAINT: - SORE THROAT DIAGNOSES: - Acute pharyngitis, unspecified - Allergy status to other drugs, medicaments and biological substances - Allergy status to penicillin - Allergy status to sulfonamides - Chronic sinusitis, unspecified - Gastro-esophageal reflux disease without esophagitis - Other moth exterminator (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 - Personal history of nicotine dependence 12/05/2023 17:37 [facility] [place] TYPE: Emergency COMPLAINT: - ASTHMA, COUGHING DIAGNOSES: - Allergy status to other drugs, medicaments and biological substances - Allergy status to penicillin - Allergy status to sulfonamides - Chronic cough - Other jail (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 - Personal history of nicotine dependence - Unspecified asthma, uncomplicated 10/29/2023 18:48 [facility] [place] TYPE: Emergency COMPLAINT: - FACIAL PAIN DIAGNOSES: - Allergy status to other drugs, medicaments and biological substances - Allergy status to penicillin - Allergy status to sulfonamides - Chronic sinusitis, unspecified - Gastro-esophageal reflux disease without esophagitis - nursing home (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 of 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 - Other jail (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 - Other specified disorders [...] - Gastro-esophageal reflux disease without esophagitis - nursing home (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 of 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 - Other chronic pain - Other moth exterminator (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 - Pain in left knee - Personal history of nicotine dependence - Unspecified asthma, uncomplicated 06/21/2023 01:13 [facility] [place] TYPE: Emergency COMPLAINT: - L KNEE PAIN DIAGNOSES: - Allergy status to other drugs, medicaments and biological substances - Allergy status to penicillin - Allergy status to sulfonamides - Gastro-esophageal reflux disease without esophagitis - ocean 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 (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 of 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 - Other chronic pain - Other moth exterminator (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 - Pain in left knee - Personal history of nicotine dependence - Unspecified asthma, uncomplicated 05/12/2023 09:30 [facility] [place] TYPE: Emergency COMPLAINT: - L KNEE SWOLLEN, PAIN DIAGNOSES: - Allergy status to other drugs, medicaments and biological substances - Allergy status to penicillin - Allergy status to sulfonamides - Chronic sinusitis, unspecified - nursing home (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 of anticoagulants - Other jail (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 - Pain in left knee - Personal history of nicotine dependence 03/09/2023 19:[address] [facility] [place] TYPE: Emergency COMPLAINT: - SINUS PROBLEM DIAGNOSES: - Allergy status to other drugs, medicaments and biological substances - Allergy status to penicillin - Allergy status to sulfonamides - Chronic sinusitis, unspecified - Gastro-esophageal reflux disease without esophagitis - Otalgia, right ear - Other moth exterminator (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 - Personal history of nicotine dependence - Unspecified asthma, uncomplicated - Unspecified otitis externa, right ear INPATIENT VISIT TRACKING (12 MO.) No inpatient visits to display in this time frame [id number]
[2023-12-25] MEDS ORDERED: predniSONE 20 MG TAB PO ONE (04:15)
[2023-12-25] MEDS ORDERED: ALBUTEROL/IPRATROPIUM 3 ML NEB INH ONE (04:15)
[2023-12-25] MEDS ORDERED: CETIRIZINE HCL 10 MG TAB PO ONE (04:30)
[2023-12-25] MEDS ORDERED: ONDANSETRON 4 MG TAB ODT SL ONE (04:45)
[2023-12-25 05:00] LABS: INFLUENZA B NAA NEGATIVE (NEGATIVE); RESPIRATORY SYNCYTIAL VIR NAA NEGATIVE (NEGATIVE)
[2023-12-25] MEDS ORDERED: KETOROLAC TROMETHAMINE 30 MG/ML VIAL IM ONE (05:30)
[2023-12-25] MEDS ORDERED: ACETAMINOPHEN 500 MG TAB PO ONE (05:30)
[2023-12-25] MEDS ORDERED: NICODERM CQ1 EACH TD (05:48)
[2023-12-25] MEDS ORDERED: NICODERM CQ1 EAC1 TD (05:48)
[2023-12-25] MEDS ORDERED: NICODERM CQ1 EAC2 TD (05:48)
[2023-12-25] MEDS ORDERED: METHYLPREDNISOLO4 M1 PO (05:49)
[2023-12-25 06:03] VITALS: BP 105/58
== END 2023-12-25 06:06 | disposition home or self-care (01) ==
LOC: ED 03:57
PROVIDERS: Internal Medicine
DX: J45.901 Unspecified asthma with (acute) exacerbation (principal); J32.1 Chronic frontal sinusitis; K21.9 Gastro-esophageal reflux disease without esophagitis; Z88.0 Allergy status to penicillin; Z88.2 Allergy status to sulfonamides; Z88.8 Allergy status to other drugs, medicaments and biological substances; Z87.891 Personal history of nicotine dependence; Z11.52 Encounter for screening for COVID-19; Z72.0 Tobacco use
CPT/HCPCS: 87502; 94640; 96372; 99285-25; A9270; J1885; J7512; U0002

== ENCOUNTER 2024-04-05 17:43 | Emergency (ER) | payer OTHER ==
[~2024-04-05] VITALS: Ht 165.1 cm; Wt 105.0 kg
[~2024-04-05 17:43] MED LIST changes: +LASIX20 MG PO; +METHYLPREDNISOLO4 M1 PO; +NICODERM CQ1 EAC1 TD; +NICODERM CQ1 EAC2 TD; +NICODERM CQ1 EACH TD
[2024-04-05] MEDS ORDERED: ADVAIR HFA 115-12 GM INH (18:11)
--- OUTSIDE RECORDS SUMMARY | 2024-04-05 18:19 | XMS ---
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 PHONE: [phone] -Cesar- Dentist: Manager Change [facility] PHONE: [phone] Marcel has no Care Guidelines for this patient. ERitu VISIT COUNT (12 MO[address] [place] [address] TOTAL 11 NOTE: Visits indicate total known visits. ED/UCC VISIT TRACKING (12 MO.) 04/05/2024 17:43 [facility] [place] TYPE: Emergency COMPLAINT: - CONSTIPATION 04/05/2024 11:00 [facility] [place] TYPE: Emergency COMPLAINT: - CONSTIPATION 02/05/2024 21:42 [facility] [place] TYPE: Emergency COMPLAINT: - EDEMA/POSS ALLERGIC REACTION DIAGNOSES: - Allergy status to other drugs, medicaments and biological substances - Allergy status to penicillin - Allergy status to sulfonamides - Hormone replacement therapy - Localized edema - Other nursing home (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 - Other specified soft tissue disorders - Personal history of nicotine dependence 12/25/2023 03:57 [facility] [place] TYPE: Emergency COMPLAINT: - COLD SYMPTOMS DIAGNOSES: - Allergy status to other drugs, medicaments and biological substances - Allergy status to penicillin - Allergy status to sulfonamides - Chronic frontal sinusitis - Cough, unspecified - Encounter for screening for COVID-19 - Gastro-esophageal reflux disease without esophagitis - Personal history of nicotine dependence - Tobacco use - Unspecified asthma with (acute) exacerbation 12/24/2023 21:05 [facility] [place] TYPE: Emergency COMPLAINT: - COLD SYMPTOMS 12/12/2023 05:13 [facility] [place] TYPE: Emergency COMPLAINT: - SORE THROAT DIAGNOSES: - Acute pharyngitis, unspecified - Allergy status to other drugs, medicaments and biological substances - Allergy status to penicillin - Allergy status to sulfonamides - Chronic sinusitis, unspecified - Gastro-esophageal reflux disease without esophagitis - Other terminologist (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 - Personal history of nicotine dependence 12/05/2023 17:37 [facility] [place] TYPE: Emergency COMPLAINT: - ASTHMA, COUGHING DIAGNOSES: - Allergy status to other drugs, medicaments and biological substances - Allergy status to penicillin - Allergy status to sulfonamides - Chronic cough - Other nursing home (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 - Personal history of nicotine dependence - Unspecified asthma, uncomplicated 10/29/2023 18:48 [facility] [place] TYPE: Emergency COMPLAINT: - FACIAL PAIN DIAGNOSES: - Allergy status to other drugs, medicaments and biological substances - Allergy status to penicillin - Allergy status to sulfonamides - Chronic sinusitis, unspecified - Gastro-esophageal reflux disease without esophagitis - detention (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 of 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 - Other terminologist (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 - Other specified disorders [...] - Gastro-esophageal reflux disease without esophagitis - detention (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 of 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 - Other chronic pain - Other nursing home (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 - Pain in left knee - Personal history of nicotine dependence - Unspecified asthma, uncomplicated 06/21/2023 01:13 [facility] [place] TYPE: Emergency COMPLAINT: - L KNEE PAIN DIAGNOSES: - Allergy status to other drugs, medicaments and biological substances - Allergy status to penicillin - Allergy status to sulfonamides - Gastro-esophageal reflux disease without esophagitis - 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 (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 of 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 - Other chronic pain - Other nursing home (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 - Pain in left knee - Personal history of nicotine dependence - Unspecified asthma, uncomplicated 05/12/2023 09:30 [facility]z [place] TYPE: Emergency COMPLAINT: - L KNEE SWOLLEN, PAIN DIAGNOSES: - Allergy status to other drugs, medicaments and biological substances - Allergy status to penicillin - Allergy status to sulfonamides - Chronic sinusitis, unspecified - detention (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 of anticoagulants - Other terminologist (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 - Pain in left knee - Personal history of nicotine dependence INPATIENT VISIT TRACKING (12 MO.) No inpatient visits to display in this time frame [id number]
[2024-04-05 19:00] VITALS: BP 135/101
[2024-04-05] MEDS ORDERED: ONDANSETRON 4 MG TAB ODT SL ONE (19:00)
[2024-04-05] MEDS ORDERED: MAGNESIUM CITRATE 300 ML BTL PO ONE (19:00)
== END 2024-04-05 19:01 | disposition home or self-care (01) ==
LOC: ED 17:43
DX: K59.00 Constipation, unspecified (principal); J45.909 Unspecified asthma, uncomplicated; K21.9 Gastro-esophageal reflux disease without esophagitis; Z87.891 Personal history of nicotine dependence; Z88.0 Allergy status to penicillin; Z88.2 Allergy status to sulfonamides; Z88.8 Allergy status to other drugs, medicaments and biological substances; Z79.899 Other long term (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
CPT/HCPCS: 99283; A9270

== ENCOUNTER 2024-04-23 05:26 | Emergency (ER) | payer OTHER ==
[~2024-04-23] VITALS: Ht 165.1 cm; Wt 101.6 kg
[~2024-04-23 05:26] MED LIST changes: +ADVAIR HFA 115-12 GM INH
--- OUTSIDE RECORDS SUMMARY | 2024-04-23 05:33 | XMS ---
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 ERitu VISIT COUNT (12 MO.) [address] [place] [address] TOTAL 12 NOTE: Visits indicate total known visits. ED/UCC VISIT TRACKING (12 MO.) 04/23/2024 05:27 [facility]unez [place] TYPE: Emergency COMPLAINT: - MIGRAINE 04/05/2024 17:43 [facility]unez [place] TYPE: Emergency COMPLAINT: - CONSTIPATION DIAGNOSES: - Allergy status to other drugs, medicaments and biological substances - Allergy status to penicillin - Allergy status to sulfonamides - Constipation, unspecified - Gastro-esophageal reflux disease without esophagitis - Other terminal operations supervisor (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 - Personal history of nicotine dependence - Unspecified asthma, uncomplicated 04/05/2024 11:00 [facility] [place] TYPE: Emergency COMPLAINT: - CONSTIPATION 02/05/2024 21:42 [facility]une[facility] [place] TYPE: Emergency COMPLAINT: - EDEMA/POSS ALLERGIC REACTION DIAGNOSES: - Allergy status to other drugs, medicaments and biological substances - Allergy status to penicillin - Allergy status to sulfonamides - Hormone replacement therapy - Localized edema - Other intermediate (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 - Other specified soft [...] Unspecified asthma with (acute) exacerbation 12/24/2023 21:05 [facility] [place] TYPE: Emergency COMPLAINT: - COLD SYMPTOMS 12/12/2023 05:13 [facility] [place] [facility] [place] TYPE: Emergency COMPLAINT: - SORE THROAT DIAGNOSES: - Acute pharyngitis, unspecified - Allergy status to other drugs, medicaments and biological substances - Allergy status to penicillin - Allergy status to sulfonamides - Chronic sinusitis, unspecified - Gastro-esophageal reflux disease without esophagitis - Other terminal operations supervisor (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 - Personal history of nicotine dependence 12/05/2023 17:37 [facility] [place] [facility] [place] TYPE: Emergency COMPLAINT: - ASTHMA, COUGHING DIAGNOSES: - Allergy status to other drugs, medicaments and biological substances - Allergy status to penicillin - Allergy status to sulfonamides - Chronic cough - Other intermediate (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 - Personal history of nicotine dependence - Unspecified asthma, uncomplicated 10/29/2023 18:48 [facility] [place] [facility] [place] TYPE: Emergency COMPLAINT: - FACIAL PAIN DIAGNOSES: - Allergy status to other drugs, medicaments and biological substances - Allergy status to penicillin - Allergy status to sulfonamides - Chronic sinusitis, unspecified - Gastro-esophageal reflux disease without esophagitis - long term acute care registered nurse (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 of 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 - Other terminal operations supervisor (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 - Other specified disorders [...] - Gastro-esophageal reflux disease without esophagitis - long term acute care registered nurse (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 of 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 - Other chronic pain - Other terminal operations supervisor (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 - Pain in left knee - Personal history of nicotine dependence - Unspecified asthma, uncomplicated 06/21/2023 01:13 [facility] [place] TYPE: Emergency COMPLAINT: - L KNEE PAIN DIAGNOSES: - Allergy status to other drugs, medicaments and biological substances - Allergy status to penicillin - Allergy status to sulfonamides - Gastro-esophageal reflux disease without esophagitis - group home (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 of 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 - Other chronic pain - Other intermediate (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 - Pain in left knee - Personal history of nicotine dependence - Unspecified asthma, uncomplicated 05/12/2023 09:[address] [facility] [place] TYPE: Emergency COMPLAINT: - L KNEE SWOLLEN, PAIN DIAGNOSES: - Allergy status to other drugs, medicaments and biological substances - Allergy status to penicillin - Allergy status to sulfonamides - Chronic sinusitis, unspecified - group home (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 of anticoagulants - Other terminal operations supervisor (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 - Pain in left knee - Personal history of nicotine dependence INPATIENT VISIT TRACKING (12 MO.) No inpatient visits to display in this time frame [id number]
[2024-04-23] MEDS ORDERED: PROCHLORPERAZINE EDISYLATE 10 MG/2 ML VIAL IV ONE (06:00)
[2024-04-23] MEDS ORDERED: KETOROLAC TROMETHAMINE 30 MG/ML VIAL IV ONE (06:00)
[2024-04-23] MEDS ORDERED: diphenhydrAMINE HCL 50 MG/ML VIAL IV ONE (06:00)
[2024-04-23] MEDS ORDERED: LACTATED RINGER'S 1,000 ML IV ONE (06:00)
[2024-04-23] MEDS ORDERED: FLUTICASONE PROPIONATE 50 MCG BTL NAS ONE (06:00)
[2024-04-23] MEDS ORDERED: FLONASE ALLERG9.9 ML NAS (06:50)
[2024-04-23 06:59] VITALS: BP 120/84
== END 2024-04-23 06:59 | disposition home or self-care (01) ==
LOC: ED 05:26
DX: G43.909 Migraine, unspecified, not intractable, without status migrainosus (principal); Z88.0 Allergy status to penicillin; Z87.891 Personal history of nicotine dependence; Z88.2 Allergy status to sulfonamides; Z88.8 Allergy status to other drugs, medicaments and biological substances; Z79.899 Other long term (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
CPT/HCPCS: 96374; 96375; 99283-25; J0780; J1200; J1885; J7121

== ENCOUNTER 2025-01-09 15:02 | Emergency (ER) | payer OTHER ==
[~2025-01-09] VITALS: Ht 165.1 cm; Wt 98.0 kg
[~2025-01-09 15:02] MED LIST changes: +FLONASE ALLERG9.9 ML NAS
[2025-01-09 15:32] LABS: BASOPHILS 0.5 % (0.1-1.2); EOSINOPHILS 0.9 % (0.7-5.8); LYMPHOCYTES 8.1 % (19.3-51.7); MCH 29.4 PG (25.6-32.2); MCHC 33.3 g/dL (32.2-35.5); MCV 88.1 fL (79.4-94.8); MONOCYTES 5.9 % (4.7-12.5); NEUTROPHILS 84.1 % (34.0-71.1); RBC 4.87 M/uL (3.93-5.22)
[2025-01-09 15:52] LABS: ALT (SGPT) 23.0 U/L (14-59); AST (SGOT) 12.0 U/L (15-37); GLOMERULAR FILTRATION RATE,EST 88.0 mL/min (>60); PROTEIN, TOTAL 7.4 g/dL (6.4-8.2); UREA NITROGEN 15.0 mg/dL (7-18)
[2025-01-09 17:30] VITALS: BP 113/78
== END 2025-01-09 17:28 | disposition home or self-care (01) ==
LOC: ED 15:02
PROVIDERS: Emergency Medicine
DX: R10.9 Unspecified abdominal pain (principal); K21.9 Gastro-esophageal reflux disease without esophagitis; J45.909 Unspecified asthma, uncomplicated; Z79.51 Long term (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 of 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; Z79.899 Other long term (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; Z88.0 Allergy status to penicillin; Z88.2 Allergy status to sulfonamides; Z88.8 Allergy status to other drugs, medicaments and biological substances; Z87.891 Personal history of nicotine dependence
CPT/HCPCS: 80053; 83690; 84703; 85025; 99284

== ENCOUNTER 2025-04-07 06:42 | Day surgery (SDC) | payer OTHER ==
[~2025-04-07] VITALS: Ht 162.6 cm; Wt 105.0 kg
[~2025-04-07 06:42] MED LIST changes: +LACTATED RINGER'S 1,000 ML IV SCH
[2025-04-07] MEDS ORDERED: ALBUTEROL/IPRATROPIUM 3 ML NEB INH SCH (07:00)
[2025-04-07] MEDS ORDERED: IBLOOD GLUCOSE TEST STRIP 1 EA TEST VI PRN ×2 (07:00→10:30)
[2025-04-07] MEDS ORDERED: SCOPOLAMINE 1 MG/3 DAYS PATCH 1 EACH TDSY TD SCH (07:00)
[2025-04-07] MEDS ORDERED: LIDOCAINE HCL 1% 5 ML SDV INJ ONE (07:00)
[2025-04-07] MEDS ORDERED: CIPROFLOXACIN/DEXTROSE 400 MG/200 ML PIGGYBACK IV SCH (07:00)
[2025-04-07] MEDS ORDERED: HEParin SOD (PORCINE) 5,000 UNIT/ML SDV SUB-Q SCH (07:00)
[2025-04-07] MEDS ORDERED: BUPIVACAINE HCL 0.5% 30 ML VIAL ONE (07:11)
[2025-04-07] MEDS ORDERED: LIDOCAINE HCL 1% 30 ML SDV ONE (07:11)
[2025-04-07 07:27] VITALS: BP 126/99
[2025-04-07] MEDS ORDERED: AFRIN15 M1 NAS ×2 (07:40)
[2025-04-07] MEDS ORDERED: fentaNYL citrate 100 MCG/2 ML VIAL ONE (09:37)
[2025-04-07] MEDS ORDERED: ROCURONIUM BROMIDE 50 MG/5 ML SYR ONE ×2 (09:41→11:14)
[2025-04-07] MEDS ORDERED: LIDOCAINE HCL 2% 5 ML SDV ONE (09:41)
[2025-04-07] MEDS ORDERED: DEXAMETHASONE SOD PHOS 4 MG/ML VIAL ONE (09:42)
[2025-04-07] MEDS ORDERED: ACETAMINOPHEN 1,000 MG/100 ML VIAL ONE (10:08)
[2025-04-07] MEDS ORDERED: MAGNESIUM SULFATE 1 GM/2 ML VIAL ONE (10:12)
[2025-04-07] MEDS ORDERED: KETAMINE in NS 50 MG/5 ML SYR ONE (10:15)
[2025-04-07] MEDS ORDERED: HYDROmorphone HCL 1 MG/ML SYR IV PRN (10:30)
[2025-04-07] MEDS ORDERED: fentaNYL citrate 50 MCG/ML SDV IV PRN (10:30)
[2025-04-07] MEDS ORDERED: NALOXONE HCL 0.4 MG SYR IV PRN (10:30)
[2025-04-07] MEDS ORDERED: GLYCOPYRROLATE 1 MG/5 ML MDV ONE (11:11)
[2025-04-07] MEDS ORDERED: SUGAMMADEX SODIUM 200 MG/2 ML ML ONE (11:14)
--- NOTE | 2025-04-07 11:58 | NUR ---
04/07/25 1158 Sheets,Heidy 1141 PT ARRIVED TO PACU ASLEEP AND RESP EVEN AND UNLABORED. 6L VIA MASK IN PLACE. 1155 PT WAKES AND IS REORIENTED TO PACU. O2 MASK REMOVED. PT DENIES PAIN AND EASILY FALLS BACK TO SLEEP.
[2025-04-07 12:40] VITALS: BP 104/50
--- NOTE | 2025-04-07 12:40 | NUR ---
PT ARRIVED BACK TO DS ON 2L/NC. PT AAOX3 AND ABLE TO MAKE HER NEEDS KNOWN. PTS SOON IN ROOM AT BEDSIDE. REPORT RECEIVED FROM OPERATIONS WELDER. SURGICAL SITES VISUALIZED WITH OPERATIONS WELDER. VS TAKEN. IV SITE ASSESSED. ICE WATER AND JELLO PROVIDED. PT DENIES NAUSEA WHEN ASKED. PT REPORTS PAIN 5/10 AND REPORTS THIS TO BE CLOSE TO NEEDING PAIN MEDS. PAIN MED ORDERS FAXED TO PHARMACY. ALL QUESTIONS ANSWERED. BED IN LOW POSITION, WHEELS LOCKED. BILAT RAILS IN PLACE. CALL LIGHT WITHIN PT REACH.
[2025-04-07] MEDS ORDERED: HYDROCODONE/ACETA 5/325 TAB PO PRN (13:30)
[2025-04-07 13:37] VITALS: BP 104/53
--- NOTE | 2025-04-07 13:41 | NUR ---
AMB TO BR AND VOIDS. ATE JELLO. WANTS TO GO HOME.
--- NOTE | 2025-04-07 13:47 | NUR ---
GETTING DRESSED FAMILY IN ROOM.
--- NOTE | 2025-04-07 14:30 | NUR ---
1410 DC INSTRUCTIONS EXPLAINED COMPUTER PRINT OUTS ALSO EXPLAINED AND REVIEWED STATES SHE UNDERSTANDS AND NO QUESTIONS SCRIPT GIVEN. ENC TO RE READ AT HOME. KNOWS TO REMOVE SCOPALOMINE PATCH DAY 3 AND TO WASH HANDS AFTER TOUCHING IT.
[2025-04-07] MEDS ORDERED: SEVOFLURANE 250 ML BTL INH ONE (14:47)
[2025-04-08] MEDS ORDERED: HYDROCODON-ACE1 EA10 PO (05:17)
[2025-04-08] MEDS ORDERED: OXYCODONE HCL5 M1 PO (06:02)
--- NOTE | 2025-04-11 11:24 | PATH ---
[facility] [address] [place], [place] [address] Signed SPECIMEN(S): A GALLBLADDER SPECIMEN SOURCE: A. GALLBLADDER CLINICAL HISTORY: Nausea without vomiting FINAL PATHOLOGIC DIAGNOSIS: Gallbladder, cholecystectomy: - Benign gallbladder with mild mucosal chronic inflammation. - Negative for calculi. JVR:clv MICROSCOPIC EXAMINATION: Histologic sections of all submitted blocks are examined by light microscopy. These findings, together with the gross examination, support the pathologic diagnosis. GROSS DESCRIPTION: The specimen, labeled and designated "Sandoval Sims, gallbladder," is received in formalin and consists of Specimen: Surgically disrupted gallbladder. Dimensions: 8.3 x 3 6 x 2.5 cm. Serosa: Valdez-green and smooth. Cystic Duct: Obstructed, inked. Calculi: Absent in specimen and container. Mucosa: Green and velvety. Wall thickness: 0.1 to 0.2 cm. Lymph node: No pericystic lymph nodes are grossly identified. Additional: None. Toe Puller sections are submitted in (A1). AA (under the direct supervision of a pathologist) The Gross Description was prepared using a voice recognition system. The report was reviewed for accuracy; however, sound-alike word errors, addition and/or deletions may occur. If there is any question about this report, please contact Client Services. PERFORMING LABORATORY: Technical component was performed by [facility], [address] [place] [id number] (CLIA# [id number]). Professional interpretation was PATIENT NAME: FROILAN SIMS JOYCE PATHOLOGY DATE OF : 84 REPORT #: [id number] PHYSICIAN: JOY RAMEY PCP: DONNIE CARDENAS PA-C REPORT IS CONFIDENTIAL AND NOT TO BE RELEASED WITHOUT AUTHORIZATION [facility] [address] [facility] [place], [place] [address] Signed performed by [facility] [address] [address] (CLIA#: [id number]). Diagnostician: Ace Cortés MD Pathologist Electronically Signed 04/11/2025 Copies: ~ PATIENT NAME: FROILAN SIMS PATHOLOGY DATE OF : 84 REPORT #: [id number] PHYSICIAN: JOY RAMEY PCP: DONNIE CARDENAS PA-C REPORT IS CONFIDENTIAL AND NOT TO BE RELEASED WITHOUT AUTHORIZATION
== END 2025-04-07 14:10 | disposition home or self-care (01) ==
LOC: DS 06:42
PROVIDERS: ATTEND Surgery
PROC: BF52200 Other Imaging of Gallbladder using Fluorescing Agent, Indocyanine Green Dye, Intraoperative (ICD-10-PCS; 2025-04-07)
PROC: 0FT40ZZ Resection of Gallbladder, Open Approach (ICD-10-PCS; principal; 2025-04-07 10:20)
DX: K81.1 Chronic cholecystitis (principal); K82.8 Other specified diseases of gallbladder; J45.909 Unspecified asthma, uncomplicated; K21.9 Gastro-esophageal reflux disease without esophagitis; Z88.1 Allergy status to other antibiotic agents; Z88.2 Allergy status to sulfonamides; Z88.8 Allergy status to other drugs, medicaments and biological substances; Z79.899 Other long term (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
CPT/HCPCS: 00790; 88304; 94640; 94760; J0131; J0744; J1100; J1171; J1644; J2003; J2405; J3010; J3475; J3490; J7121

== ENCOUNTER 2025-04-08 04:48 | Emergency (ER) | payer OTHER ==
[~2025-04-08] VITALS: Ht 162.6 cm; Wt 103.7 kg
[~2025-04-08 04:48] MED LIST changes: +AFRIN15 M1 NAS; -LACTATED RINGER'S 1,000 ML IV SCH
--- OUTSIDE RECORDS SUMMARY | 2025-04-08 04:53 | XMS ---
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 E.Abelardo VISIT COUNT (12 MO.) 4 [facility] [place] TOTAL 4 NOTE: Visits indicate total known visits. 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 - Personal history of nicotine dependence - Unspecified abdominal pain - Unspecified asthma, uncomplicated 04/23/2024 05:27 [facility] [place] TYPE: Emergency COMPLAINT: - MIGRAINE DIAGNOSES: - Allergy status to other drugs, medicaments and biological substances - Allergy status to penicillin - Allergy status to sulfonamides - Headache, unspecified - Migraine, unspecified, not intractable, without status migrainosus - Other fpc (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 - Personal history of nicotine dependence INPATIENT VISIT TRACKING (12 MO.) No inpatient visits to display in this time frame [id number]
--- OUTSIDE RECORDS SUMMARY | 2025-04-08 05:00 | XMS | Continuity of Care Document ---
Demographics + + + | Address | [address] | | | [place] [address] | + + + | Preferred Language | Unknown | + + + | Marital Status | Domestic partner | + + + | Mosque Affiliation | Unknown | + + + | Race | White | + + + | Ethnic Group | Not or | + + + Author + + + | Author | [facility] | + + + | Organization | [facility] | + + + | Address | [address] | | | [place] [address] | + + + | Phone | | + + + Care Team Providers + + + + | Care Claims Customer Service Representative Name | Role | Phone | + + + + Unavailable | Unavailable | + + + + Unavailable | Unavailable | + + + + Allergies No information. Encounters No information. Functional Status No information. Immunizations No information. Medications + + + + | date | description | facility | + + + + | (no date) | CETIRIZINE HCL | [facility] | | | | [facility] | + + + + | (no date) | OXYCODONE | [facility] | | | HCL/ACETAMINOPHEN | [facility] | + + + + | (no date) | CLARITHROMYCIN | [facility] | | | | [facility] | + + + + | (no date) | OMEPRAZOLE | [facility] | | | | [facility] | + + + + | (no date) | MONTELUKAST SODIUM | [facility] | | | | [facility] | + + + + | (no date) | CEFDINIR | [facility] | | | | [facility] | + + + + | (no date) | SERTRALINE HCL | [facility] [place] [place] | | | | [facility] | + + + + | (no date) | GABAPENTIN | [facility] | | | | [facility] | + + + + | (no date) | IBUPROFEN | [facility] | | | | [facility] | + + + + | (no date) | ESOMEPRAZOLE MAG | [facility] [place] [place] | | | TRIHYDRATE | [facility] | + + + + | (no date) | LORATADINE | [facility] | | | | [facility] | + + + + | (no date) | TRAMADOL HCL | [facility] [place] [place] | | | | [facility] | + + + + | (no date) | TRAMADOL HCL | [facility] [place] [place] | | | | [facility] | + + + + | (no date) | ALBUTEROL SULFATE | [facility] [place] [place] | | | | [facility] | + + + + | (no date) | FLUTICASONE/SALMETEROL | [facility] | | | | [facility] | + + + + | (no date) | FEXOFENADINE HCL | [facility] [place] [place] | | | | [facility] | + + + + Problems + + + + | date | description | facility | + + + + | 2025-01-09 00:00 | Abdominal pain | [facility] [place] [place] | | | | [facility] | + + + + Procedures No information. Results/Labs +--------+--------+ +---------+--------+---------+ | test | date | facility | value | unit | notes | +--------+--------+ +---------+--------+---------+ + + | Result panel 1 | + + + + + +---------+ + + | WBC # Bld | 2025-01-09 | | 15.16 | (missing) | (missing) | | Auto | 15:26:07 | [facility] | | | | + + + +---------+ + + + + | Result panel 2 | + + + + + +-------+ + + | Lymphocytes | 2025-01-09 | | 8.1 | (missing) | (missing) | | NFr Bld | 15:26:07 | [facility] | | | | | Auto [facility] | | | | + + + +-------+ + + + + | Result panel 3 | + + + + + +-------+ + + | Monocytes | 2025-01-09 | | 5.9 | (missing) | (missing) | | NFr Bld Auto | 15:26:07 | [facility] | | | | + + + +-------+ + + + + | Result panel 4 | + + + + + +-------+ + + | Eosinophil | 2025-01-09 | | 0.9 | (missing) | (missing) | | NFr Bld Auto | 15:26:07 | [facility] | | | | + + + +-------+ + + + + | Result panel 5 | + + + + + +-------+ + + | Basophils | 2025-01-09 | | 0.5 | (missing) | (missing) | | NFr Bld Auto | 15:26:07 | [facility] | | | | + + + +-------+ + + + + | Result panel 6 | + + + + + +-------+---------+ + | Glucose | 2025-01-09 | | 136 | mg/dL | (missing) | | SerPl-mCnc | 15:26:07 | [facility] | | | | + + + +-------+---------+ + + + | Result panel 7 | + + + + + +------+---------+ + | BUN | 2025-01-09 | | 15 | mg/dL | (missing) | | Francol-mCnc | 15:26:07 | [facility] | | | | + + + +------+---------+ + + + | Result panel 8 | + + + + + +--------+---------+ + | Creat | 2025-01-09 | | 0.85 | mg/dL | (missing) | | SerPl-mCnc | 15:26:07 | [facility] | | | | + + + +--------+---------+ + + + | Result panel 9 | + + + + + +------+ + + | eGFRcr | 2025-01-09 | | 88 | (missing) | (missing) | | SerPlBld | 15:26:07 | [facility] | | | | | CKD-EPI 2020 | [facility] | | | | + + + +------+ + + + + | Result panel 10 | + + + + + +---------+ + + | BUN/Creat | 2025-01-09 | | 17.64 | (missing) | (missing) | | SerPl | 15:26:07 | [facility] | | | | + + + +---------+ + + + + | Result panel 11 | + + + + + +-------+ + + | Sodium | 2025-01-09 | | 140 | (missing) | (missing) | | SerPl-sCnc | 15:26:07 | [facility] | | | | + + + +-------+ + + + + | Result panel 12 | + + + + + +--------+ + + | RBC # Bld | 2025-01-09 | | 4.87 | (missing) | (missing) | | Auto | 15:: | [facility] | | | | + + + +--------+ + + + + | Result panel 13 | + + + + + +-------+ + + | Potassium | 2025-01-09 | | 3.7 | (missing) | (missing) | | SerPl-sCnc | 15::07 | [facility] | | | | + + + +-------+ + + + + | Result panel 14 | + + + + + +-------+ + + | Chloride | 2025-01-09 | | 106 | (missing) | (missing) | | SerPl-sCnc | 15:26:07 | [facility] | | | | + + + +-------+ + + + + | Result panel 15 | + + + + + +------+ + + | CO2 | 2025-01-09 | | 25 | (missing) | (missing) | | SerPl-sCnc | 15:26:07 | [facility] | | | | + + + +------+ + + + + | Result panel 16 | + + + + + +--------+ + + | Anion Gap | 2025-01-09 | | 12.7 | (missing) | (missing) | | SerPl | 15:26:07 | [facility] | | | | | Calculated.4 | [facility] | [facility] | | | | + + + +--------+ + + + + | Result panel 17 | + + + + + +-------+---------+ + | Calcium | 2025-01-09 | | 8.7 | mg/dL | (missing) | | SerPl-mCnc | 15:26:07 | [facility] | | | | + + + +-------+---------+ + + + | Result panel 18 | + + + + + +-------+ + + | Prot | 2025-01-09 | | 7.4 | (missing) | (missing) | | SerPl-mCnc | 15:26:07 | [facility] | | | | + + + +-------+ + + + + | Result panel 19 | + + + + + +-------+ + + | Albumin | 2025-01-09 | | 3.4 | (missing) | (missing) | | SerPl-mCnc | 15:26:07 | [facility] | | | | + + + +-------+ + + + + | Result panel 20 | + + + + + +-------+ + + | Globulin | 2025-01-09 | | 4.0 | (missing) | (missing) | | Ser-mCnc | 15:26:07 | [facility] | | | | + + + +-------+ + + + + | Result panel 21 | + + + + + +--------+ + + | | 2025-01-09 | | 0.85 | (missing) | (missing) | | Albumin/Glob | 15::07 | [facility] | | | | | SerPl [facility] | | | | + + + +--------+ + + + + | Result panel 22 | + + + + + +-------+---------+ + | Bilirub | 2025-01-09 | | 0.2 | mg/dL | (missing) | | SerPl-mCnc | :26:07 | [facility] | | | | + + + +-------+---------+ + + + | Result panel 23 | + + + + + +--------+ + + | Hgb | 2025-01-09 | | 14.3 | (missing) | (missing) | | Bld-mCnc | 15:26:07 | [facility] | | | | + + + +--------+ + + + + | Result panel 24 | + + + + + +------+ + + | AST | 2025-01-09 | | 12 | (missing) | (missing) | | SerPl-cCnc | 15:26:07 | [facility] | | | | + + + +------+ + + + + | Result panel 25 | + + + + + +------+ + + | ALT | 2025-01-09 | | 23 | (missing) | (missing) | | Ser[facility] | 15:26:07 | [facility] | | | | + + + +------+ + + + + | Result panel 26 | + + + + + +------+ + + | ALP | 2025-01-09 | | 96 | (missing) | (missing) | | SerPl-cCnc | 15:26:07 | [facility] | | | | + + + +------+ + + + + | Result panel 27 | + + + + + +------+ + + | Lipase | 2025-01-09 | | 57 | (missing) | (missing) | | SerPl-cCnc | 15:26:07 | [facility] | | | | + + + +------+ + + + + | Result panel 28 | + + + + + + + + + | HCG SerPl | 2025-01-09 | | NEGATIVE | (missing) | (missing) | | Ql | 15:26:07 | [facility] | | | | + + + + + + + + + | Result panel 29 | + + + + + +--------+ + + | Hct VFr.DF | 2025-01-09 | | 42.9 | (missing) | (missing) | | Bld Auto | 15:26:07 | [facility] | | | | + + + +--------+ + + + + | Result panel 30 | + + + + + +--------+ + + | RBC Auto | 2025-01-09 | | 88.1 | (missing) | (missing) | | | 15:26: | [facility] | | | | + + + +--------+ + + + + | Result panel 31 | + + + + + +--------+ + + | MCH RBC Qn | 2025-01-09 | | 29.4 | (missing) | (missing) | | Auto | 15:26:07 | [facility] | | | | + + + +--------+ + + + + | Result panel 32 | + + + + + +--------+ + + | MCHC RBC | 2025-01-09 | | 33.3 | (missing) | (missing) | | Auto-EntMCnc | 15:26:07 | [facility] | | | | + + + +--------+ + + + + | Result panel 33 | + + + + + +-------+ + + | Platelet # | 2025-01-09 | | 307 | (missing) | (missing) | | Bld Auto | 15:26:07 | [facility] | | | | + + + +-------+ + + + + | Result panel 34 | + + + + + +--------+ + + | Neutrophils | 2025-01-09 | | 84.1 | (missing) | (missing) | | NFr Bld | 15:26:07 | [facility] | | | | | Auto [facility] | | | | + + + +--------+ + + Social History +--------+ + + | date | description | facility | +--------+ + + Vital Signs + + + +---------+ | date | measurement | value | units | + + + +---------+ | 2025-01-09 00:00 | BMI | 36.0 | kg/m2 | + + + +---------+ | 2025-01-09 00:00 | BP_diastolic | 78 | mmHg | + + + +---------+ | 2025-01-09 00:00 | BP_systolic | 113 | mmHg | + + + +---------+ | 2025-01-09 00:00 | heart_rate | 87 | /min | + + + +---------+ | 2025-01-09 00:00 | height_metric | 165.1 | cm | + + + +---------+ | 2025-01-09 00:00 | height_standard | 65 | in | + + + +---------+ | 2025-01-09 00:00 | o2_saturation | 99 | % | + + + +---------+ | 2025-01-09 00:00 | respiration_rate | 18 | /min | + + + +---------+ | 2025-01-09 00:00 | temperature_metric | 36.78 | C | | | | | | + + + +---------+ | 2025-01-09 00:00 | | 98.2 | F | | | temperature_standar | | | | | d | | | + + + +---------+ | 2025-01-09 00:00 | weight_metric | 98 | kg | + + + +---------+ | 2025-01-09 00:00 | weight_standard | 216.06 | lb | + + + +---------+ | 2025-01-18 00:00 | BMI | 38.5 | kg/m2 | + + + +---------+ | 2025-01-18 00:00 | BP_diastolic | 109 | mmHg | + + + +---------+ | 2025-01-18 00:00 | BP_systolic | 143 | mmHg | + + + +---------+ | 2025-01-18 00:00 | heart_rate | 79 | /min | + + + +---------+ | 2025-01-18 00:00 | height_metric | 165.1 | cm | + + + +---------+ | 2025-01-18 00:00 | height_standard | 65 | in | + + + +---------+ | 2025-01-18 00:00 | o2_saturation | 100 | % | + + + +---------+ | 2025-01-18 00:00 | respiration_rate | 16 | /min | + + + +---------+ | 2025-01-18 00:00 | temperature_metric | 37 | C | | | | | | + + + +---------+ | 2025-01-18 00:00 | | 98.6 | F | | | temperature_standar | | | | | d | | | + + + +---------+ | 2025-01-18 00:00 | weight_metric | 105 | kg | + + + +---------+ | 2025-01-18 00:00 | weight_standard | 231.49 | lb | + + + +---------+"
[2025-04-08] MEDS ORDERED: HYDROmorphone HCL 1 MG/ML SYR IM ONE (05:15)
[2025-04-08] MEDS ORDERED: ONDANSETRON 4 MG TAB ODT SL ONE (05:15)
[2025-04-08] MEDS ORDERED: HYDROCODON-ACE1 EA10 PO (05:17)
[2025-04-08] MEDS ORDERED: OXYCODONE HCL5 M1 PO (06:02)
[2025-04-08 06:21] VITALS: BP 113/62
== END 2025-04-08 06:22 | disposition home or self-care (01) ==
LOC: ED 04:48
DX: G89.18 Other acute postprocedural pain (principal); R10.11 Right upper quadrant pain; J45.909 Unspecified asthma, uncomplicated; K21.9 Gastro-esophageal reflux disease without esophagitis; Z87.891 Personal history of nicotine dependence; Z88.0 Allergy status to penicillin; Z88.2 Allergy status to sulfonamides; Z88.8 Allergy status to other drugs, medicaments and biological substances; Z79.899 Other long term (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
CPT/HCPCS: 96372; 99283; A9270; J1171